=== PATIENT | female | born 1985 | race Caucasian/White ===

== ENCOUNTER 2021-01-25 19:18 | Emergency (ER) | payer OTHER, SELFPAY ==
[2021-01-25 19:50] VITALS: BP 106/77; PULSE 87; RESP 18; TEMP 36.7; O2SAT 99
--- NOTE | 2021-01-25 21:00 | ED.SKABFB ---
HPI - Skin/Abscess/Foreign Bdy General Chief complaint: Skin/Abscess/Foreign Body Stated complaint: Irritation under Rt arm, Rt Eye pain Time Seen by Provider: 01/25/21 20:20 Source: patient and RN notes reviewed Mode of arrival: ambulatory Limitations: no limitations History of Present Illness HPI narrative: Patient presents today complaining of abscesses to her right axilla x3 to 4 days and have been worsening since onset. She also reports a stye to her right lower eyelid with green drainage x2 to 3 days. She did recently shave her right axilla with a new razor. History of staph in the past with one previous abscess that she did not have to have lanced. 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 She has not tried any interventions for either complaint prior to arrival. MD complaint: abscess/boil Related Data Allergies Allergy/AdvReac Type Severity Reaction Status Date / Time hydroxyzine [From Vistaril] Allergy Hallucinati Verified 01/25/21 20:05 ng TAPE PAPER Allergy Severe RASH Uncoded 03/10/11 15:48 Review of Systems Review of Systems: CONSTITUTIONAL: Denies body aches, fever, chills, or sweats. EYES: Denies visual changes. + Right eye redness and green drainage with swelling of the lower lid ENT: Denies rhinorrhea, congestion, sore throat, or otalgia. CARDIOVASCULAR: Denies chest pain, palpitations, or edema. RESPIRATORY: Denies cough or dyspnea. GASTROINTESTINAL: Denies abdominal pain, nausea, vomiting, or diarrhea. GENITOURINARY: Denies dysuria or hematuria. SKIN: Denies rash, itching, or wounds.+ Abscess right axilla MUSCULOSKELETAL: Denies back pain, joint pain, or myalgia. NEUROLOGIC: Denies headache, numbness, tingling, or weakness. PSYCH: Denies depression or anxiety. [facility] Family History Family History (Updated 02/08/11 @ 12:05 by DOCTOR UNKNOWN) Other Carcinoma of colon Diabetes mellitus Family history of arthritis Family history of lung cancer Family history of malignant neoplasm of esophagus Family history of malignant neoplasm of male breast Family history of mental disorder Social History Social History (Updated 01/28/21 @ 08:06 by Roma Emery, CARPET OR RUG LAYER HELPER, ) Smoking status: Current every day smoker Tobacco type: cigarettes Alcohol intake: current Substance use: former Substance use type: crack/cocaine, heroin and amphetamines Living arrangements: with family Exam Narrative: GENERAL: Well-appearing, well-nourished, and in no acute distress. HEAD: Normocephalic, atraumatic. EYES: EOMI. PERRL. 1-2mm green pustular external stye to the right lower eyelid. Draining green purulent discharge. Conjunctiva mildly erythematous. Left eye normal. ENT: Mucous membranes pink and moist. NECK: Normal AROM. CHEST: No respiratory distress. EXTREMITIES: Normal range of motion. No edema. SKIN: Warm, dry, no rash. Capillary refill normal. Normal skin turgor. 2 2x2cm erythematous fluctuant lesions to the right axilla. Tender to palpation. NEURO: No focal deficits. Alert and oriented x3. Gait steady. PSYCH: Normal affect. No signs of depression or anxiety. Course Vital Signs Vital signs: Vital Signs Temperature 98.1 F 01/25/21 19:50 Pulse Rate 87 01/25/21 19:50 Respiratory Rate 18 01/25/21 19:50 Blood Pressure 106/77 01/25/21 19:50 Pulse Oximetry 99 01/25/21 19:50 Temperature 98.1 F 01/25/21 19:50 Pulse Rate 87 01/25/21 19:50 Respiratory Rate 18 01/25/21 19:50 Blood Pressure 106/77 01/25/21 19:50 Pulse Oximetry 99 01/25/21 19:50 Reviewed Procedures Abscess I/D right axilla: Date of Incision: 01/25/21 Time of Incision: 20:45 Side (if applicable): right Local Anesthetic: lidocaine 1% and with epi Amount of anesthesia used (mL): 2 Technique: needle aspiration and incised with #11 blade Amount of fluid expressed (mL): 2 Irrigation: Yes Packing used?: no
== END 2021-01-25 21:08 | disposition home or self-care (01) ==
PROVIDERS: Emergency Provider Nurse Practitioner
DX: L02.411 Cutaneous abscess of right axilla (principal); H00.013 Hordeolum externum right eye, unspecified eyelid; F17.200 Nicotine dependence, unspecified, uncomplicated
CPT/HCPCS: 10060; 87070; 87075; 87147; 87186; 87205; 99213; G0463

== ENCOUNTER 2023-10-13 11:33 | Emergency (ER) | payer BC, SELFPAY ==
--- NOTE | ~2023-10-13 | XR_ITS ---
EXAMINATION: XR elbow RT 2V DATE: 10/13/2023 16:44 INDICATION: Foreign body. TECHNIQUE: 2 views of right elbow were obtained. COMPARISON: Radiographs 10/09/2006 FINDINGS: Bone alignment is normal. No fracture. Joint spaces are normal. No elbow joint effusion. Th ere is a 7 mm linear radiopaque foreign body in the antecubital fossa. IMPRESSION: 1. 7 mm linear radiopaque foreign body in the antecubital fossa. Reviewed, dictated and finalized at location E.
--- NOTE | ~2023-10-13 | CT_ITS ---
EXAMINATION: CT soft tissue neck wo con DATE: 10/13/2023 16:43 INDICATION: Neck pain and swelling. TECHNIQUE: Computed tomography (CT) of the neck was performed without intravenous contrast. Automated exposure control and iterative reconstruction technique were employed. The dose-length product was 5 40.70 mGy-cm. COMPARISON: None FINDINGS: There are no pathologically enlarged lymph nodes. There is subcutaneous fat stranding at th e chin, consistent with inflammation. No abscess. There is kyphosis of cervical spine. There is mild mucosal thickening in the paranasal sinuses. The mastoid air cells are normal. IMPRESSION: 1. Subcutaneous fat stranding at the chin, consistent with inflammation. No abscess. Reviewed, dictated and finalized at location E. IMPRESSION: 1. Subcutaneous fat stranding at the chin, consistent with inflammation. No abs cess.
[2023-10-13 11:48] VITALS: BP 135/82; PULSE 97; RESP 16; TEMP 36.8; O2SAT 98
[2023-10-13 13:27] LABS: Appearance Urine Cloudy (Clear); Bacteria Urine 4+ /hpf; Bilirubin Urine Negative (Negative); Blood Urine Negative (Negative); Color Urine Dark Yellow (Yellow); Glucose Urine UA Negative (Negative); Ketones Urine Trace mg/dL (Negative); Leukocyte Esterase Ur Trace LEU/UL (Negative); Nitrate Urine Negative (Negative); Non Pathogenic Casts 0-2; Protein Urine Trace mg/dL (Negative); RBC Urine 0-2 /hpf (0-2); Specific Grav Ur 1.027 (1.001-1.035); Squamous Epithelial Cell Urine Many /hpf (Few)
[2023-10-13 13:34] LABS: Barbiturate Screen Urine Negative (Negative); Benzodiazepines Screen Urine Negative (Negative); Cannabinoid Screen Urine Positive (Negative); Cocaine Screen Urine Positive (Negative); Methadone Screen Urine Negative (Negative); Opiate Screen Urine Negative (Negative); Phencyclidine Screen Urine Negative (Negative)
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
[2023-10-13 13:51] LABS: Add Urine Microscopic? YES
[2023-10-13 13:52] LABS: Amphetamine Screen Urine Positive (Negative)
[2023-10-13 13:55] LABS: SARS-CoV-2 RNA PCR Negative (Negative)
[2023-10-13 14:04] LABS: Basophils Percent Auto 0.6 % (0.2-1.2); Eosinophils Absolute Auto 0.1 K/mm3 (0-0.3); Eosinophils Percent Auto 1.9 % (0-4.4); Hematocrit 42.5 % (37.0-47.0); Hemoglobin 13.6 g/dL (12.0-15.0); Immature Granulocyte Absolute 0.02 K/mm3 (0.00-0.031); Immature Granulocyte Percent A 0.3 % (0-0.5); Lymphocytes Absolute Auto 1.56 K/mm3 (0.9-3.2); Lymphocytes Percent Auto 23.3 % (18.3-44.2); Mean Corpuscular Hemoglobin 30.8 pg (26-34); Mean Corpuscular Volume 96.4 fl (80-100); Mean Platelet Volume 10.6 fl (7.4-10.4); Monocytes Absolute Auto 0.7 K/mm3 (0.1-0.6); Monocytes Percent Auto 10.5 % (2.6-8.5); Neutrophils Absolute Auto 4.2 K/mm3 (1.3-6.7); Neutrophils Percent Auto 63.4 % (45.5-73.1); Platelet Count Result 247 k/mm3 (150-375); Red Blood Count 4.41 M/mm3 (4.2-5.4); Red Cell Distribution Width 13.6 % (11.5-14.5); White Blood Count 6.7 K/mm3 (4.5-10.0)
[2023-10-13 14:18] LABS: Alanine Aminotransferase 12 U/L (6-35); Albumin Level 3.8 g/dL (3.5-5.1); Alkaline Phosphatase 86 U/L (38-126); Anion Gap 7 mmol/L (4-12); Aspartate Amino Transferase 20 U/L (14-36); Bilirubin,Total 0.5 mg/dL (0.2-1.3); Blood Urea Nitrogen 5 mg/dL (7-17); Calcium 8.5 mg/dL (8.4-10.2); Carbon Dioxide 21 mmol/L (22-30); Chloride 109 mmol/L (98-107); Estimated CRCL calculation 121 ml/min; Estimated Glomerular Filt Rate > 60; Glucose 88 mg/dL (65-110); Potassium 3.6 mmol/L (3.4-5.0); Sodium 137 mmol/L (137-145)
[2023-10-13 14:20] LABS: Ethanol < 10 mg/dL (<10)
[2023-10-13 14:52] LABS: Thyroid Stimulating Hormone Reflex 0.713 uIU/mL (0.465-4.68)
[2023-10-13 14:57] LABS: Pregnancy On Board Control Positive; Urine Pregnancy Test Negative
[2023-10-13] MEDS: CEPHALEXIN 500 MG CAPSULE PO (15:00)
[2023-10-13 15:11] LABS: SPREG INTERNAL CONTROL Positive; Serum Qual hCG Negative
[2023-10-13 15:41] LABS: Folic Acid 14.6 ng/mL (2.76->20)
[2023-10-13] MEDS: HYDROcodone/acetaminophen (*CRX) 5-325 MG TABLET 1 TAB PO (17:02)
[2023-10-13] MEDS: LORazepam (*CRX) 0.5 MG TABLET PO (17:59)
[2023-10-13] MEDS: NICOTINE (*PBKC) 21 MG PATCH 1 PATCH TRANSDERM (20:16)
[2023-10-13 20:50] VITALS: BP 142/80; PULSE 87; RESP 15; O2SAT 98
== END 2023-10-13 21:00 | disposition home or self-care (01) ==
PROVIDERS: Emergency Medicine; Emergency Provider Student in an Organized Health Care Education/Training Program; PCP Nurse Practitioner
DX: N39.0 Urinary tract infection, site not specified (principal); F15.10 Other stimulant abuse, uncomplicated; F14.10 Cocaine abuse, uncomplicated; F12.10 Cannabis abuse, uncomplicated; R45.851 Suicidal ideations; L98.9 Disorder of the skin and subcutaneous tissue, unspecified; S50.351A Superficial foreign body of right elbow, initial encounter; Z20.822 Contact with and (suspected) exposure to COVID-19; W45.8XXA Other foreign body or object entering through skin, initial encounter; F17.210 Nicotine dependence, cigarettes, uncomplicated
CPT/HCPCS: 36415; 70490; 73070; 80053; 80307; 81001; 81025; 82607; 82746; 84443; 84703; 85025; 87086; 87088; 87635; 99284; A9270

== ENCOUNTER 2024-04-20 13:01 | Emergency (ER) | payer BC, SELFPAY ==
--- NOTE | ~2024-04-20 | XR_ITS ---
XR shoulder RT min 2V DATE: 04/20/2024 15:46 INDICATION: Injury 2 weeks ago. Pain. TECHNIQUE: 4 views COMPARISON: None FINDINGS: No recent fracture or dislocation. No periosteal reaction or bone destruction. Normal align ment at the acromioclavicular and glenohumeral joints. No abnormal right shoulder soft tissue calcifi cation. IMPRESSION: Negative Reviewed, dictated and finalized at location A. 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
--- NOTE | ~2024-04-20 | XR_ITS ---
XR lumbar spine 2-3V DATE: 04/20/2024 15:46 INDICATION: Fall. Lower back pain. TECHNIQUE: AP, lateral, coned lateral lumbosacral views COMPARISON: None FINDINGS: There is mild thoracolumbar dextroscoliosis. Included lower thoracic and lumbar pedicles are intact. No fracture or bone destruction or spondyloli sthesis of the lumbar spine. There is mild to moderate degenerative disc disease primarily at L1-2, L2-3 and L3-4. Minimal degener ative disc disease at L4-5. L5-S1 disc space is well preserved. The sacroiliac joints are intact. Surgical clips, right upper quadrant, consistent with cholecystectomy. There is a prominent amount of fecal material within the colon. IMPRESSION: Bilateral mild to moderate degenerative disc disease Mild thoracolumbar dextroscoliosis No fracture or bone destruction or spondylolisthesis Reviewed, dictated and finalized at location A. BRAKE WORKER
--- NOTE | ~2024-04-20 | CT_ITS ---
EXAMINATION: CT soft tissue neck wo con DATE: 04/20/2024 15:50 INDICATION: Swelling anterior left neck TECHNIQUE: Computed tomography (CT) of the neck was performed with 75 mL Omnipaque-350 intravenous co ntrast. Automated exposure control and iterative reconstruction technique were employed. Exam dose: 532.75 mGy-cm total exam DLP. COMPARISON: None FINDINGS: No cervical mass lesion or adenopathy. Normal parotid and submandibular glands. The thyroid gland appears unremarkable. No superior mediastinal mass lesion or lymph node enlargement. The included upper lungs are clear. Included skeletal structures are unremarkable IMPRESSION: No significant abnormality Reviewed, dictated and finalized at Location A. Reviewed, dictated and finalized at location A. T FURNACE KEEPER IMPRESSION: No significant abnormality
[2024-04-20 13:02] VITALS: BP 123/72; PULSE 109; RESP 16; TEMP 37.1; O2SAT 98
--- NOTE | 2024-04-20 15:45 | ED_ITS ---
HPI - Back Pain/Injury General Chief Complaint: Back Pain/Injury Stated Complaint: low back/shoulder pain, sciatica, nodule in throat Time Seen by Provider: 04/20/24 15:02 Source: patient and old records reviewed Mode of arrival: ambulatory Limitations: no limitations History of Present Illness HPI Narrative: Patient is a 39-year-old female who presents the ED with multiple complaints. Patient reports having right shoulder pain for the past 2 weeks after injuring herself while playing badminton. She states she was told she may have injured a rotator cuff muscle. She then tripped and fell on Sunday and tried to catch herself with her right arm, re-injuring her right shoulder. Complains of pain to her right shoulder since then. Also reports having pain throughout her lower back since the fall. Hx sciatica. Has been taking Tylenol and ibuprofen without much improvement. Denies numbness, saddle anesthesia, bowel or bladder incontinence, weakness. Patient does also report having swelling throughout her anterior neck, worse throughout the left side. States this has been ongoing for the past 2 years, but has been worsening over the last several days. Denies difficulty breathing or swallowing. Patient is currently residing at [place] for mental health issues. Hx of cocaine, methamphetamine, heroin use in the past. Currently on suboxone. Related Data Allergies Allergy/AdvReac Type Severity Reaction Status Date / Time hydroxyzine [From Vistaril] Allergy Hallucinati Verified 04/20/24 13:06 ng TAPE PAPER Allergy Severe RASH Uncoded 04/20/24 13:06 Review of Systems Review of Systems: All systems reviewed & are unremarkable except as noted in HPI. All systems reviewed & are unremarkable except as noted in HPI and below PMFSH Past Medical History Medical History Mental health problem Right hand dominant Family History Family History Other Carcinoma of colon Diabetes mellitus Family history of arthritis Family history of lung cancer Family history of malignant neoplasm of esophagus Family history of malignant neoplasm of male breast Family history of mental disorder Social History Social History Smoking status: Current every day smoker Tobacco type: cigarettes Alcohol intake: current Substance use: former Substance use type: marijuana, crack/cocaine and methamphetamine Last use: Last heroin use approx 2013 Living arrangements: with family Exam Narrative: GENERAL: Well appearing, well-nourished, non-toxic, in no acute distress. HEAD: Normocephalic, atraumatic. NECK: Neck is supple. No cervical midline spinal tenderness. Minimal appreciable swelling to left lateral anterior neck. No significant tenderness. RESPIRATORY: Airway patent, respirations nonlabored. Clear to auscultation bilaterally, no rales, rhonchi, wheezing. CARDIOVASCULAR: Regular rate and rhythm without murmurs, rubs, or gallops. MUSCULOSKELETAL: Moves all extremities. No gross deformities. No significant lumbar midline spinal tenderness. Mild tenderness to palpation over right SI region, reproducing pain. Tenderness to palpation over right anterior shoulder, with mild limited range of motion of right shoulder flexion in abduction due to pain. 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 Radial pulses are strong and easily palpable. SKIN: Warm, dry, normal color. NEURO: A&O X3. Speech clear. Cranial nerves II-XII grossly intact. Steady gait. No ataxic movements. PSYCHIATRIC: Intermittently tearful, labile mood. Normal interaction. Course Vital Signs Vital signs: Vital Signs Temperature 98.7 F 04/20/24 13:02 Pulse Rate 109 H 04/20/24 13:02 Respiratory Rate 16 04/20/24 13:02 Blood Pressure 123/72 04/20/24 13:02 Pulse Oximetry 98 04/20/24 13:02 Oxygen Delivery Room Air 04/20/24 13:02 Temperature 97.8 F 04/20/24 16:04 Pulse Rate 109 H 04/20/24 16:04 Respiratory Rate 16 04/20/24 16:04 Blood Pressure 124/74 04/20/24 16:04 Pulse Oximetry 98 04/20/24 16:04 Oxygen Delivery Room Air 04/20/24 13:02 MDM - Back Pain/Injury MDM Narrative Medical decision making narrative: Patient presented to ED with multiple complaints, right shoulder pain and lower back pain after a recent fall. Also reporting swelling in her neck. Neurovascularly intact. No red flag symptoms. No evidence of cord compression or cauda equina. Back pain and shoulder pain seems musculoskeletal in nature. There is no significant swelling appreciated throughout neck however CT soft tissue neck was obtained and negative. No masses or abnormal lymphadenopathy, no abnormalities noted of thyroid. Updated patient on this. X-ray of lumbar spine showing DDD, which patient is aware of. No acute findings. X-ray of right shoulder negative. Patient was updated on imaging findings. Given Toradol, Tylenol, Flexeril in the ED with some improvement. Feel she is safe for discharge. She will be returning to [facility] to continue her mental health care. Will prescribe short course of Flexeril for home use. Will also refer to neurosurgery and Orthopedics for further evaluation if needed. Given arm sling in the ED. Patient given return precautions. She agrees with plan. Discharged in stable condition. Medical Records Attestation: I reviewed the patient's medical records. Imaging Data Attestation: I personally reviewed and interpreted this imaging study as follows: Radiologist's impression: ITS Impressions Soft Tissue Neck CT 04/20/24 15:58 IMPRESSION: No significant abnormality Shoulder X-Ray 04/20/24 16:04 IMPRESSION: Negative Lumbar Spine X-Ray 04/20/24 16:08 IMPRESSION: Bilateral mild to moderate degenerative disc disease Mild thoracolumbar dextroscoliosis No fracture or bone destruction or spondylolisthesis Discharge Plan Discharge Clinical Impression: Strain of lumbar region Qualifiers: Encounter type: initial encounter Qualified Code(s): S39.012A - Strain of muscle, fascia and tendon of lower back, initial encounter Strain of right shoulder Qualifiers: Encounter type: initial encounter Qualified Code(s): S46.911A - Strain of unspecified muscle, fascia and tendon at shoulder and upper arm level, right arm, initial encounter Patient Disposition: Home, Self-Care Condition: Stable Instructions: Antibiotic Form, Rotator Cuff Injury (ED), Acute Low Back Pain (ED), Shoulder Sprain (ED), Lower Back Exercises (ED) Additional Instructions: Your work up here was reassuring. You likely strained your back and shoulder. Utilize sling as needed. Continue Tylenol and ibuprofen as needed for pain. Recommend ice to areas of pain. Take muscle relaxers as needed and prescribed. Recommend taking these at night as they may cause sedation. Do not drive, operate heavy machinery, drink alcohol while on muscle relaxers as this may cause further sedation. You may follow-up with orthopedics or neurosurgery for further evaluation. Return to the ED if you experience worsening or severe pain, recurrent injury, numbness, or any other symptoms of concern. Prescriptions: New cyclobenzaprine 5 mg tablet 5 mg PO TID PRN (Reason: muscle spasm) Qty: 7 0RF No Action sulfamethoxazole-trimethoprim [Bactrim DS] 800-160 mg tablet 1 tablet PO Q12H 10 Days Qty: 20 0RF polymyxin B sulf-trimethoprim [Polytrim] 10,000 unit- 1 mg/mL drops 1 drp RIGHT EYE Q3H 7 Days Qty: 10 0RF Rx Instructions: while awake; do not exceed 6 doses in 24 hours cephalexin 500 mg capsule 500 mg PO Q8H 5 Days Qty: 15 0RF cephalexin 500 mg capsule 500 mg PO Q8H 5 Days Qty: 15 0RF sulfamethoxazole-trimethoprim [Bactrim DS] 800-160 mg tablet 1 tablet PO Q12H 5 Days Qty: 10 0RF Follow-up/Referrals: Blake Banda MD [Physician] - (ORTHOPEDICS) Azam Steen MD [Physician] - (NEUROSURGERY) Santi,Nilesh Zafar APRN [Primary Care Provider] - Time of Disposition: 16:55
[2024-04-20] MEDS: KETOROLAC (*BKC) 60 MG/2 ML VIAL IM (15:59)
[2024-04-20] MEDS: CYCLOBENZAPRINE HCL 5 MG TABLET PO (16:00)
[2024-04-20] MEDS: ACETAMINOPHEN 500 MG TABLET 1000 MG PO (16:00)
[2024-04-20 16:04] VITALS: BP 124/74; PULSE 109; RESP 16; TEMP 36.6; O2SAT 98
[2024-04-20] MEDS: ONDANSETRON HCL ODT 4 MG TABLET PO (16:43)
== END 2024-04-20 17:04 | disposition home or self-care (01) ==
PROVIDERS: Emergency Provider Physician Assistant; PCP Nurse Practitioner
DX: S39.012A Strain of muscle, fascia and tendon of lower back, initial encounter (principal); S46.911A Strain of unspecified muscle, fascia and tendon at shoulder and upper arm level, right arm, initial encounter; F17.210 Nicotine dependence, cigarettes, uncomplicated; W01.0XXA Fall on same level from slipping, tripping and stumbling without subsequent striking against object, initial encounter
CPT/HCPCS: 70490; 72100; 73030; 96372; 99284; A4565; A9270; J1885

== ENCOUNTER 2024-11-24 04:47 | Emergency (ER) | payer BC, SELFPAY ==
--- NOTE | ~2024-11-24 | XR_ITS ---
Portable chest x-ray Comparison: 04/10/2009 Clinical History: Shortness of breath Findings: Lungs are clear, without focal consolidation or pleural effusion. Cardiomediastinal silho uette is stable. Bones and soft tissues are unremarkable. Impression: Normal chest. Reviewed, dictated and finalized at location . Impression: Normal chest.
--- NOTE | 2024-11-24 04:55 | ECG_ITS ---
Test Date: 2024-11-24 05:20:21 Measurements Intervals [place] Rate: 61 P: 65 SC: 128 QRS: 51 QRSD: 95 T: 37 QT: 404 QTc: 408 Interpretive Statements SINUS RHYTHM NORMAL ELECTROCARDIOGRAM No previous ECG available for comparison Electronically Signed On 11-25-2024 09:46:08 CDT by Dickson Mendes M.D.
[2024-11-24 05:11] VITALS: BP 114/85; PULSE 112; RESP 26; TEMP 36.8; O2SAT 100
[2024-11-24] MEDS: SODIUM CHLORIDE 0.9% IV 1,000 ML 999 ML IV CONT (05:14)
[2024-11-24] MEDS: LORazepam INJ (*CRX) 2 MG/ML VIAL 1 MG IV PUSH (05:14)
[2024-11-24 05:25] LABS: Hematocrit 44.6 % (37.0-47.0); Hemoglobin 14.4 g/dL (12.0-15.0); Immature Granulocyte Percent A 0.3 % (0-0.5); Lymphocytes Absolute Auto 1.60 K/mm3 (0.9-3.2); Mean Corpuscular HGB Conc 32.3 g/dl (32-36); Mean Corpuscular Hemoglobin 28.0 pg (26-34); Mean Corpuscular Volume 86.6 fl (80-100); Nucleated Red Blood Cells Absolute Auto 0.000 K/mm3 (0.0-0.012); Nucleated Red Blood Cells Perc 0.0 % (0.0-0.2); Platelet Count Result 382 k/mm3 (150-375); Red Blood Count 5.15 M/mm3 (4.2-5.4); White Blood Count 8.6 K/mm3 (4.5-10.0)
[2024-11-24 05:26] LABS: BEDSIDEPREGUCG Negative (Negative)
--- OUTSIDE RECORDS SUMMARY | 2024-11-24 05:31 | XMS_ITS | Clinical Summary ---
Author Organization [facility] Address [address] [place] [address] Care Team Providers Care Family Worker Name Role Phone Ritchie Chen Primary Care Provider [phone] Allergies Active Allergy Reactions Criticality Noted Date Comments Tape Rash Low 11/03/2017 Hydroxyzine Unknown 11/03/2017 Medications acetaminophen 500 MG tablet Take 500-1,000 mg by mouth every 6 (six) hours. Active lurasidone 40 MG Tab tablet Take by mouth daily with breakfast. Active ranitidine 150 MG tablet Take 150 mg by mouth 2 (two) times daily. Active cyclobenzaprine 10 MG tablet Take 10 mg by mouth 3 (three) times daily as needed for Muscle Spasms. Active potassium chloride (KLOR-CON) 20 MEQ packet Take 1 packet by mouth 2 (two) times daily. 20 tablet 08/29/2018 Active hydrocodone-cliff taminophen 5-325 MG tablet Take 1 tablet by mouth every 4 (four) hours as needed. 20 tablet 09/03/2018 Active senna-docusate 8.6-50 MG tablet Take 1 tablet by mouth 2 (two) times daily. 60 tablet 09/03/2018 Active traZODone 150 MG tablet Take 150 mg by mouth nightly. 08/26/2020 Active clonazePAM 0.5 MG tablet Take 0.5 mg by mouth 2 (two) times daily as needed. FOR ANXIETY 08/25/2020 Active tiZANidine 2 MG tablet Take 2 mg by mouth daily as needed. 08/27/2020 Active LATUDA 20 MG tablet Take 20 mg by mouth daily. 40 mg at night and 20 mg in the morning 08/07/2020 Active ibuprofen 800 MG tablet Take 1 tablet (800 mg total) by mouth every 8 (eight) hours as needed for Pain. 20 tablet 09/07/2020 Active Active Problems Problem Noted Date Diagnosed Date Bipolar disorder in partial remission ([facility]) 01/17/2024 Bulge of lumbar disc without myelopathy 01/17/20 Fibromyalgia 01/17/2024 Cocaine use with cocaine-induced disorder ([facility]) 01/17/2024 Alcohol withdrawal ([facility]) 10/15/2023 Stimulant withdrawal ([facility]) Anxiety 10/15/2023 MRSA infection 10/15/2023 Schizoaffective disorder ([facility]) 10/14 Asthma ([facility]) 10/22/2022 Chronic active hepatitis C ([facility]) 03/2023 Hypoglycemia 10/22/2022 Opioid dependence ([facility]) 10/22/2022 Osteoarthrosis 10/22/2022 Scoliosis deformity of spine 10/22/2022 Snoring 10/22/2022 Vitamin D3 deficiency 10/22/2022 Depressive disorder 10/16/2022 Generalized anxiety disorder 10/16/2022 Nausea 10/16/2022 Syncope 10/16/2022 Thrombocytopenic disorder 10/16/2022 Opioid withdrawal ([facility]) 11/22/2018 Oligohydramnios ([facility]) 08/31/2018 Abdominal pain affecting ([facility]) History of marijuana use 08/10/2015 History of heroin abuse 08/02/2015 HSV-1 (herpes simplex virus 1) infection 015 Overview (01/17/2024): HSV 2 negative Chronic low back pain with sciatica 03/23/2015 Overview (01/17/2024): belt prescribed prior to coming to [facility] Supervision of high risk , antepartum ( [facility]) 03/23/2015 Overview (01/17/2024): Dating: PNL: A+/I/-/-, HIV neg Pap: GC/CT: neg, Trich neg Urine cx: neg UDS: +MJ H/H/P: 14.3/43.1/222 HgbE: Genetics: Anatomy US: Flu shot: Tdap: LFT's: (ALT 64/AST 37) 02/04/18 HCV: positive GCT: GBS: Viral hepatitis C 10/10/2013 Overview (01/17/2024): Quant: 449,000 Genotype: LFT: 64/37 02/04/18 Immunizations Immunization Administration Dates Next Due MMR (MMRII) 09/02/2018 Social History Tobacco Use Types Packs/Day Years Used Date Smoking Tobacco: Every Day Cigarettes Smokeless Tobacco: Never Tobacco Cessation:Ready to Q uit: No; Counseling Given: Yes Alcohol Use Standard Drinks/Week Comments Yes 0 (1 standard drink = 0.6 oz pure alcohol) occational, states not when Comments No Sex and Gender Information Value Date Recorded Sex Assigned at Not on file Legal Sex Female 9:52 PM CDT Gender Identity Not on file Sexual Orientation Not on file Last Filed Vital Signs Vital Sign Reading Time Taken Comments Blood Pressure 134/84 01/19/2024 6:10 AM CDT Pulse 90 01/19/2024 6:10 AM CDT Temperature 37.2 C (98.9 F) 01/19/2024 4:00 AM CDT Respiratory Rate 22 01/19/2024 6:10 AM CDT Oxygen Saturation 97% 01/19/2024 6:10 AM CDT Inhaled Oxygen Concentration - - Weight 86.6 kg (191 lb) 01/19/2024 4:00 AM CDT Height 167.6 cm (5' 6) 01/19/2024 4:00 AM CDT Body Mass Index 30.83 01/19/2024 4:00 AM CDT Plan of Treatment Health Maintenance Due Date Last Done Comments Cervical Cancer Screening Pap Smear (Age 30 to 64) Every 3 Years 1985 Annual Physical 1988 DTaP, Tdap and Td Vaccines (1 - Tdap) 2004 Pneumococcal Vaccine: Pediatrics (0 to 5 Years) and At-Risk Patients (6 to 49 Years) (1 of 2 - PCV) 2004 Cervical Cancer Screening Pap with HPV Testing (Age 30 to 64) Every 5 Years 2015 Cervical Cancer Screening with HPV 2015 Hepatitis B Vaccines (2 of 3 - 19+ 3-dose series) 03/04/2018 02/04/2018 COVID-19 Vaccine ( season) 2024 Hepatitis C Completed 10/22/2022, 11/11, 07/23/2018, Additional history exists HPV Vaccines Aged Out No longer eligi ble based on patient's age to complete this topic Meningococcal B Vaccine Aged Out No l onger eligible based on patient's age to complete this topic Meningococcal Vaccine Aged Out No simeon micaela eligible based on patient's age to complete this topic RSV Immunizations Under 20 Months Aged Out No longer eligible based on patient's age to complete this topic Procedures Procedure Name Priority Date/Time Associated Diagnosis Comments HEPATITIS C ANTIBODY Routine 06/21/2018 7:33 PM COAL [employer]ARD SUPERVISOR (HHS/HCC) from Last 3 Months or Most Recently Relevant to Health Maintenance Results * (ABNORMAL) HEPATITIS C ANTIBODY (06/21/2018 7:33 PM COAL YARD SUPERVISOR) HEPATITIS C AB REACTIVE( A) NON-REACT JT 06/24/2018 12:30 PM COAL YARD SUPERVISOR [facility] Comment: PRESUMPTIVE EVIDENCE OF ANTIBODIES TO HCV. CONSIDER ORDERING HCV RNA DETECTION AND QUANTIFICATION BY RT-PCR ANALYSIS ON A NEW SPECIMEN. 06/21/2018 7:33 PM COAL YARD SUPERVISOR us Rozina Vincent MD [facility] Final Res ult [facility] [address] [place] [address], [id number] from Last 3 Months or Most Recently Relevant to Health Maintenance Additional Health Concerns Infection Onset Date Last Indicated MRSA 12/21/2016 12/21/2016 Insurance [facility] C/O PROVIDER SERVICES [place] [id number] Advance Directives * Full Code (Latest Code Status on File) Date Activated Date Inactivated Comments 08/31/2018 11:48 AM 09/03/2018 4:40 PM Care Teams Family Worker Relationship Specialty Start Date End Date Ritchie Chen DO [address] [place] [id number] PCP - General FAMILY PRACTICE 01/17/24
--- OUTSIDE RECORDS SUMMARY | 2024-11-24 05:31 | XMS_ITS ---
Author Organization [facility] Address [address] [place] [address] Care Team Providers Care Laster Hand Name Role Phone Shoshana Gallegos Primary Care Provider [phone] Luiz Calhoun [phone] REASON FOR VISIT MAR f/u. See notes from telephone AWM telephone encounter Social History Sex Assigned At : Social History Observation Description Sex Assigned At Female Encounters Encounter Location Date Provider Diagnosis [address] [place] [address] 11/03/2024 Luiz Calhoun Plan Of Treatment No Information Progress Notes * Adwoa ZARATEDOB:1985 (39 yo F)Acc No.[id number]:11/03/2024 UNLOCKED PROGRESS NOTE Patient: Adwoa ARRIAGA Provider: Gerard Calhoun :1985 A ge:39 Y S ex:Female Date:11/03/2024 Address:[address] [place], [place] [id number] Pcp:Shoshana Gallegos Subjective: * Chief Complaints: * 1 . MAR f/u. See notes from telephone AWM telephone encounter. * Medical History: Objective: * Vitals: Assessment: Plan: * Treatment: * Care Plan Details* * Electronic signature of Venus Calhoun , [id number] on 11/24/2024 at 05:30 AM CDT Sign off status: Pending * Provider: Gerard Calhoun Date: 0 11/03/2024 Generated for Jake garcia/Slim/Alberto on: 0 11/24/2024 05:30 AM CDT
--- OUTSIDE RECORDS SUMMARY | 2024-11-24 05:31 | XMS_ITS ---
Author Organization [facility] Address [address] [place] [address] Care Team Providers Care Marble Rubber Name Role Phone Shoshana Gallegos Primary Care Provider [phone] Luiz Calhoun [phone] REASON FOR VISIT transfer from [facility] Social History Sex Assigned At : Social History Observation Description Sex Assigned At Female Encounters Encounter Location Date Provider Diagnosis [address] [phone] 11/04/2024 Luiz Calhoun Plan Of Treatment No Information Progress Notes * Adwoa ZARATEDOB:1985 (39 yo F)Acc No.[id number]:11/04/2024 UNLOCKED PROGRESS NOTE Progress Notes Patient: S Adwoa DE OLIVEIRA Provider: Gerard Calhoun :1985 A ge:39 Y S ex:Female Date:11/04/2024 Address:[address] [place], [place] [id number] Pcp:Shoshana Gallegos Subjective: * Chief Complaints: * 1 . Transfer from [facility]. * Medical History: Objective: * Vitals: Assessment: Plan: * Treatment: * * Electronic signature of Venus Calhoun , [id number] on 11/24/2024 at 05:31 AM CDT Sign off status: Pending * Provider: Gerard Calhoun Date: 0 11/04/2024 Generated for Jake garcia/Slim/Alberto on: 0 11/24/2024 05:[address]
--- OUTSIDE RECORDS SUMMARY | 2024-11-24 05:31 | XMS_ITS | Patient Health Record ---
Author Organization [facility] Address [address] [place] [address] Care Team Providers Care Synthetic Department Supervisor Name Role Phone Shoshana Gallegos Primary Care Provider [phone] Nahomy Hall Unavailable [phone] Luiz Calhoun Unavailable [phone] Nilesh Hancock Unavailable [phone] Jayne Mims Unavailable [phone] Sade Miller Unavailable [phone] Fany Goel Unavailable [phone] Cyn Cardona Unavailable [phone] Gudelia Celaya Unavailable [phone] Ann Gotti Unavailable [phone] Rozina Maddox Unavailable [phone] Shannon Wiggins Unavailable [phone] Celestina Richey Unavailable [phone] Allergies Allergen (clinical drug ingredient) Drug/Non Drug Allergy documented on EMR Reaction Allergy Type Onset Date Status Adhesive burn Allergy Active hydroxyzine Hydroxyzine Hallucinations Drug Allergy Active Results Component Value Reference Range Notes Mammogram Breast - Bilateral Screening with ABUS, diagnostic mammogram/ultrasound, and/or biopsy as clinically indicated Reviewed date:07/21/2024 08:29:52 AM Interpretation:Normal Performing Lab: Notes/Report: Normal Vitamin B12 and Folate Reviewed date:04/23/2024 08:46:27 AM Interpretation:Normal Performing Lab:[facility], [address] [place] [address], Phone - [phone], Director - [facility] Notes/Report: Vitamin B12 085 426-1841 pg/mL Folate (Folic Acid), Serum >20.0 >3.0 ng/mL A serum folate concentration of less than 3.1 ng/mL is considered to represent clinical deficiency. TSH+Free T4* Reviewed date:04/23/2024 08:46:27 AM Interpretation:Normal Performing Lab:[address], Phone - [phone], Director - [facility] Notes/Report: TSH 1.390 0.450-4.500 uIU/mL T4,Free(Direct) 1.04 0.82-1.77 ng/dL HIV Screen *HIV 1, 2 Ab, p24 Ag ([id number]) Reviewed date:05/20/2024 01:01:27 PM Interpretation:Negative Performing Lab:[address], Phone - [phone], Director - [facility] Notes/Report: HIV Ab/p24 Ag Screen Non Reactive Non Reactive HIV-1/HIV-2 antibodies and HIV-1 p24 antigen were NOT detected. There is no laboratory evidence of HIV infection. HIV Negative Hemoglobin A1c* Reviewed date:05/20/2024 01:01:27 PM Interpretation:Normal Performing Lab:[facility] [address] [place] [address], Phone - [phone], Director - [facility] Notes/Report: Hemoglobin A1c 5.6 4.8-5.6 % . Prediabetes: 5.7 - 6.4 Diabetes: >6.4 Glycemic control for adults with diabetes: <7.0 CBC With Differential/Platel et* Reviewed date:05/20/2024 04:35:21 PM Interpretation: Performing Lab:[facility] [address] [place] [address], Phone - [phone], Director - [facility] Notes/Report: WBC 3.7 3.4-10.8 x10E3/uL RBC 4.38 3.77-5.28 x10E6/uL Hemoglobin 13.2 11.1-15.9 g/dL Hematocrit 40.9 34.0-46.6 % MCV 93 79-97 fL MCH 30.1 26.6-33.0 pg MCHC 32.3 31.5-35.7 g/dL RDW 11.4 11.7-15.4 % Platelets 148 150-450 x10E3/uL Neutrophils 33 Not Estab. % Lymphs 53 Not Estab. % Monocytes 9 Not Estab. % Eos 4 Not Estab. % Basos 1 Not Estab. % Neutrophils (Absolute) 1.2 1.4-7.0 x10E3/uL Lymphs (Absolute) 2.0 0.7-3.1 x10E3/uL Monocytes(Absolute) 0.3 0.1-0.9 x10E3/uL Eos (Absolute) 0.1 0.0-0.4 x10E3/uL Baso (Absolute) 0.0 0.0-0.2 x10E3/uL Immature Granulocytes 0 Not Estab. % Immature Grans (Abs) 0.0 0.0-0.1 x10E3/uL Hepatitis B Surface Antigen (HBsAg Screen) Reviewed date:05/20/2024 01:01:27 PM Interpretation:Negative Performing Lab:[facility], [address] [place] [address], Phone - [phone], Director - [facility] Notes/Report: HBsAg Screen Negative Negative Hepatitis C Virus Antibody w /Rflx to Quantitative Real-time PCR ([id number]) Reviewed date:05/20/2024 01:01:27 PM Interpretation:Abnormal Performing Lab:[facility], [address] [place] [address], Phone - [phone], Director - [facility] Notes/Report: HCV Ab Reactive Non Reactive Hepatitis C Quantitation HCV Not Detected Test Information: The quanti tative range of this assay is 15 IU/mL to 100 million IU/mL. Interpretation: Positive HCV antibody screen without the presence of HCV RNA is consistent with a resolved past infection or a false positive HCV antibody. Consider repeat testing after one month. Lipid Panel* Reviewed date:05/20/2024 01:01:27 PM Interpretation:High Performing Lab:[facility], [address] [place] [address], Phone - [phone], Director - [facility] Notes/Report: Cholesterol, Total 207 100-199 mg/dL Triglycerides 161 0-149 mg/dL HDL Cholesterol 55 >39 mg/dL VLDL Cholesterol Dash 28 5-40 mg/dL LDL Chol Calc ([facility]) 124 0-99 mg/dL CMP 14 Comprehensive Metabol ic Panel* Reviewed date:05/20/2024 01:01:27 PM Interpretation: Performing Lab:[facility], [address] [place] [address], Phone - [phone], Director - [facility] Notes/Report: Glucose 103 70-99 mg/dL BUN 14 6-20 mg/dL Creatinine 0.82 0.57-1.00 mg/dL eGFR 93 >59 mL/min/1.73 BUN/Creatinine Ratio 17 9-23 Sodium 140 134-144 mmol/L Potassium 4.5 3.5-5.2 mmol/L Chloride 108 96-106 mmol/L Carbon Dioxide, Total 21 20-29 mmol/L Calcium 8.8 8.7-10.2 mg/dL Protein, Total 6.1 6.0-8.5 g/dL Albumin 3.9 3.9-4.9 g/dL Globulin, Total 2.2 1.5-4.5 g/dL Bilirubin, Total <0.2 0.0-1.2 mg/dL Alkaline Phosphatase 56 44-121 IU/L AST (SGOT) 23 0-40 IU/L ALT (SGPT) 18 0-32 IU/L Rapid Plasma Reagin (RPR) Te st With Reflex to Quantitative RPR and Confirmatory Treponema pallidum Antibodies Reviewed date:05/20/2024 01:01:27 PM Interpretation: Performing Lab:[facility], [address] [facility], Phone - [phone], Director - [facility] Notes/Report: RPR Non Reactive Non Reactive PDF Report Reviewed date:05/20/2024 01:01:27 PM Interpretation: Performing Lab:[facility] [address] [place] [address], Phone - [phone], Director - [facility] Notes/Report: Clinical Information:[id number] PDF Report1 LCLS 12 Panel Urine Drug Screen Reviewed date:12/06/2023 10:33:23 AM Interpretation: Performing Lab: Notes/Report: THC POS MELISSA neg MOP (OPI) neg AMP neg MET neg BAR neg BZO neg MDMA neg MTD neg OXY neg PCP neg BUP POS Buprenorphine and Metabolite (Urine test) Reviewed date:12/11/2023 08:59:03 AM Interpretation: Performing Lab:[facility], [address] [facility], [place], Phone - [phone], Director - Ph[facility] Notes/Report: Clinical Information:[id number] LM Buprenorphine Positive Confirmation p erformed by Mass Spectrometry Buprenorphine Positive Buprenorphine Conf, MS, UR 165 Cutoff=10 ng/mL Norbuprenorphine Positive Norbuprenorphine Conf, MS, UR 558 Cutoff=10 ng/mL Pap IG Aptima HPV Age Gdln, +CtNgTv ([id number]) Reviewed date:04/28/2024 11:52:21 AM Interpretation: Performing Lab:[facility], [address] [facility], Phone - [phone], Director - [facility] Notes/Report: Clinical Information:[id number] Clinical Information:[id number] Age Gdln ACOG Testing 30-65 DIAGNOSIS: NEGATIVE FOR INTRAEPITHELIAL LESION OR MALIGNANCY. CELLULAR CHANGES ASSOCIATED WITH INFLAMMATION ARE PRESENT. Specimen adequacy: Satisfactory for evaluation. Endocervical and/or squamous metaplastic cells (endocervical component) are present. Clinician provided ICD10: Z0 1.419 Performed by: Calin Menon, Catalyst Operator (ASCP) . . Note: The Pap smear is a screening test designed to aid in the detection of premalignant and malignant conditions of the uterine cervix. It is not a diagnostic procedure and should not be used as the sole means of detecting cervical cancer. Both false-positive and false-negative reports do occur. . Test Methodology: This liquid based ThinPrep(R) pap test was screened with the use of an image guided system. HPV Aptima Negative Negative This nucleic acid amplification test detects fourteen high-risk HPV types (16,18,31,33,35,39,45,51 ,52,56,58,59,66,68) without differentiation. HPV Genotype Reflex Criteria not met, HPV Genotype not performed. Chlamydia, Nuc. Acid Amp Negative Negative Gonococcus, Nuc. Acid Amp Negative Negative Trich vag by ANDERS Positive Negative 12 Panel Urine Drug Screen Reviewed date:06/13/2024 11:15:32 AM Interpretation: Performing Lab: Notes/Report: THC neg MELISSA neg MOP (OPI) neg AMP POS MET neg BAR neg BZO neg MDMA neg MTD neg OXY neg PCP neg BUP POS 12 Panel Urine Drug Screen Reviewed date:08/06/2024 10:02:55 AM Interpretation: Performing Lab: Notes/Report: THC neg MELISSA neg MOP (OPI) neg AMP POS MET neg BAR neg BZO neg MDMA neg MTD neg OXY neg PCP neg BUP POS 12 Panel Urine Drug Screen Reviewed date:07/11/2024 01:49:37 PM Interpretation: Performing Lab: Notes/Report: THC neg MELISSA neg MOP (OPI) neg AMP POS MET neg BAR neg BZO neg MDMA neg MTD neg OXY neg PCP neg BUP POS NuSwab Vaginitis Plus (VG+) ([id number]) Reviewed date:04/24/2024 12:50:42 PM Interpretation:Abnormal Performing Lab:[facility], Phone - [phone], Director - [facility] Notes/Report: Test(s) 630374- Atopobium vaginae; 935760- BVAB 2; 742217- Megasphaera 1 was developed and its performance characteristics determined by [facility]. It has not been cleared or approved by the Food and Drug Administration. Test(s) 605928-Qtgftqa albicans, ANDERS; 345054-Zpoqppn glabrata, ANDERS was developed and its performance characteristics determined by [facility]. It has not been cleared or approved by the Food and Drug Administration. Atopobium vaginae High - 2 BVAB 2 High - 2 Megasphaera 1 Low - 0 Calculate total score by adding the 3 individual bacterial vaginosis (BV) marker scores together. Total score is interpreted as follows: Total score 0-1: Indicates the absence of BV. Total score 2: Indeterminate for BV. Additional clinical data should be evaluated to establish a diagnosis. Total score 3-6: Indicates the presence of BV. Chaya albicans, ANDERS Negative Negative Chaya glabrata, ANDERS Negative Negative Trich vag by ANDERS Positive Negative Chlamydia trachomatis, ANDERS Negative Negative Neisseria gonorrhoeae, ANDERS Negative Negative QuantiFERON-TB Gold Plus (18 1419) Reviewed date:04/23/2024 08:46:27 AM Interpretation:Normal Performing Lab:[facility], [address] [place] [address], Phone - [phone], Director - [facility] Notes/Report: QuantiFERON Incubation Incubation performed. QuantiFERON-TB Gold Plus Negative Negative No response to M tuberculosis antigens detected. Infection with M tuberculosis is unlikely, but high risk individuals should be considered for additional testing (ATS/IDSA/CDC Clinical Practice Guidelines, 2017). The reference range is an Antigen minus Nil result of <0.35 IU/mL. Chemiluminescence immunoassay methodology QuantiFERON Criteria QuantiFERON-TB Gold Plus is a qualitative indirect test for M tuberculosis infection (including disease) and is intended for use in conjunction with risk assessment, radiography, and other medical and diagnostic evaluations. The QuantiFERON-TB Gold Plus result is determined by subtracting the Nil value from either TB antigen (Ag) value. The Mitogen tube serves as a control for the test. QuantiFERON TB1 Ag Value 0.25 QuantiFERON TB2 Ag Value 0.15 QuantiFERON Nil Value 0.01 QuantiFERON Mitogen Value >10.00 14 Panel Urine Drug Screen Reviewed date:10/21/2024 02:37:41 PM Interpretation: Performing Lab: Notes/Report: THC neg MELISSA POS MOP (OPI) neg AMP neg MET POS BAR neg BZO neg MDMA neg MTD neg OXY neg PCP neg BUP POS TCA neg FTY neg Reason For Referral Reason LBP Diagnosis 1 Bilateral low back p ain with right-sided sciatica, unspecified chronicity (M54.41) Referral Organization [facility] Referring Provider First Name Nilesh Referring Provider Last Name Santi [facility] Referred Provider Specialty Physical The rapist General Notes Faxed to [facility], Rozina Tmo RN 07/08/2024 10:10:34 AM >Patient requesting referral be faxed to [facility] at [phone], Rozina Tom RN 07/08/2024 10:46:37 AM >Referral and records faxed to [facility]-PT Clinical Notes [facility]-Out patient Physical Therapy, Referral Priority Routine Medications Medication SIG (Take, Route, Frequency, Duration) Notes Start Date End Date Status Lurasidone HCl 60 MG 1 tablet in the evening with food Orally Once a day; Duration: 5 days Active Lurasidone HCl 40 MG 1 tablet with food in the morning Orally Once a day; Duration: 5 days Active Buprenorphine HCl-Naloxone HCl 4-1 MG 1 film under the tongue and allow to dissolve Sublingual Once a day; Duration: 3 days As needed for cravings 10/17/2024 Active Sublocade 300 MG/1.5ML 1.5 mL Subcutaneous every 28 days 08/06/2024 Active Baclofen 5 MG 1 tablet as needed Orally up to three times daily Active traZODone HCl 50 MG 1 tablet at bedtime as needed Orally Once a day; Duration: 30 days Active Loratadine 10 MG 1 tablet Orally Once a day; Duration: 30 days Active Lurasidone HCl 40 MG 1 tablet with food in the morning Orally Once a day; Duration: 30 days Active Vitamin D (Ergocalciferol) 50 MCG (2000 UT) 1 capsule Orally Once a day; Duration: 30 days Active Ibuprofen 800 MG 1 tablet with food or milk as needed Orally every 8 hrs Active Ondansetron HCl 4 MG 1 tablet Orally twice daily; Duration: 30 days As needed nausea Active Albuterol Sulfate HFA 108 (90 Base) MCG/ACT 1 puff as needed Inhalation every 4 hrs 04/30/2024 Active Omeprazole 20 MG 1 capsule Orally Once a day Not-Taking GLUCOMETER, FORMULARY ANY to test daily as needed; Duration: 360 days 06/26/2024 Active SUMAtriptan Succinate 25 MG one tablet at onset of migraine, may take 1 more two ours later if no relief Orally once daily; Duration: 9 days As needed 08/14/2024 Not-Taking Venlafaxine HCl ER 225 MG 1 tablet with food Orally Once a day Active Nicorette 2 MG as directed Mouth/Throat; Duration: 30 days As needed Not-Taking Multivitamin - 1 tablet Orally Once a day Active Nicoderm CQ 21 MG/24HR 1 patch to skin Transdermal Once a day Not-Taking Lurasidone HCl 60 MG 1 tablet in the evening with food Orally Once a day; Duration: 30 days Active Hydrocortisone 0.5 % 1 application to rash Externally once daily; Duration: 5 days on unit 05/08/2024 Not-Taking Venlafaxine HCl ER 225 MG 1 tablet with food Orally Once a day; Duration: 30 days Active Docusate Sodium 100 mg TAKE 1 CAPSULE BY MOUTH DAILY NEEDED; Duration: 30 Active Pregabalin 75 MG 1 capsule Orally 3 times a day; Duration: 7 days overdue for appt 11/19/2024 Active Fluticasone Propionate 50 MCG/ACT 1 spray in each nostril Nasally Twice a day; Duration: 30 days on unit 05/08/2024 Not-Taking metroNIDAZOLE 500 MG 1 tablet Orally Twice daily; Duration: 7 days on unit 04/24/2024 Not-Taking Vyvanse 70 MG 1 capsule in the morning Orally Once a day Active Melatonin 5 MG 1 tablet in the evening Orally Once a day As needed Not-Taking Immunizations Vaccine Route Administration Date Status Comme nts Influenza, virus vaccine, trivalent, preservative free Unknown 04/17/2024 Administered Annie ANNEL, Kaylen Molina 04/18/2024 02:05:30 PM LICENSED MENTAL HEALTH COUNSELOR >received documentation from [facility] indicating pt received flu vaccine there. Social History Tobacco Use: Social History Observation Description Date Details (start date - stop date) Former Smoker NA - NA Sex Assigned At : Social History Observation Description Sex Assigned At Female PRAPARE Question Answer Notes Date Completed/Updated: 04/22/2024 What is your current housing situation? I do not have housing (staying with others, in a hotel, in a jail, living outside on the street, on a beach, or in a park) Are you worried about losing your housing? Yes What is the highest level of school that you have finished? High school diploma or GED What is your current work situation? Oth erwise unemployed but not seeking work (ex. 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 Check all that apply Food,Utilities Has lack of transportation k ept you from medical appointments, meetings, work or from getting things needed for daily living? Yes, it has kept me from non-medical meetings, appointments, work, or getting things needed for daily living How often do you see or talk to people that you care about and feel close to? (For example: talking to friends on the phone, visiting friends or family, going to confucianist or club meetings) 3 to 5 times a week How stressed are you? Stress is when someone feels tense, nervous, anxious, or can\t sleep at night because their mind is troubled Quite a bit In the past year have you sp ent more than 2 nights in a row in a mcc, skilled nursing, penitentiary center, or juvenile correctional facility? No Are you a refugee? No What country are you from? [place] Do you feel physically and e motionally safe where you currently live? No In the past year, have you b een afraid of your partner or ex-partner? Yes PRAPARE Score: 12 Tobacco Control (Standard) Question Answer Notes Tobacco use: Former smoker Section Notes: PRESCRIPTION # FILLED WRITTEN DRUG LABEL QTY DAYS STRENGTH MME PRESCRIBER PHARMACY REFILL NO. REFILLS STATE 11/02/2023 11/02/2023 Cyclobenzaprine Hcl 90.0 30 10 MG NA Hancock Nilesh J - [id number] [place], [place] NA 0 [place] 1 [id number] 10/22/2023 10/04/2023 Buprenorphine-naloxone 36.0 12 8 MG / 2 MG NA Hancock Nilesh J - [id number] [place], [place] NA 0 [place] 1 [id number] 10/20/2023 10/04/2023 Buprenorphine-naloxone 6.0 2 8 MG / 2 MG NA Hancock Nilesh J - [id number] [place], [place] NA 0 [place] 1 [id number] 10/19/2023 10/19/2023 chlordiazePOXIDE HCL 20.0 6 10 MG PRESCRIPTION # FILLED WRITTEN DRUG LABEL QTY DAYS STRENGTH MME PRESCRIBER PHARMACY REFILL NO. REFILLS STATE 10/22/2023 10/04/2023 Buprenorphine-naloxone 36.0 12 8 MG / 2 MG NA Hancock Nilesh J - [id number] [place], [place] NA 0 [place] 1 [id number] 10/20/2023 10/04/2023 Buprenorphine-naloxone 6.0 2 8 MG / 2 MG NA Hancock Nilesh J - [id number] [place], [place] NA 0 [place] 1 [id number] 10/19/2023 10/19/2023 chlordiazePOXIDE HCL 20.0 6 10 MG PRESCRIPTION # FILLED WRITTEN DRUG LABEL QTY DAYS STRENGTH MME PRESCRIBER PHARMACY REFILL NO. REFILLS STATE 11/02/2023 11/02/2023 Cyclobenzaprine Hcl 90.0 30 10 MG NA Santi Galloway J - [id number] [place], [place] NA 0 [place] 1 [id number] 10/22/2023 10/04/2023 Buprenorphine-naloxone 36.0 12 8 MG / 2 MG NA Santi Hines - [id number] [place], [place] NA 0 [place] 1 [id number] 10/20/2023 10/04/2023 Buprenorphine-naloxone 6.0 2 8 MG / 2 MG NA Santi Hines - [id number] [place], [place] NA 0 [place] 1 [id number] 10/19/2023 10/19/2023 chlordiazePOXIDE HCL 20.0 6 10 MG Problems Problem Type SNOMED Code ICD Code Onset Dates Problem Status W/U Status Risk Notes Problem Tobacco user (027110122) Nicotine dependence, unspecified, uncomplicated (F17.200) Active confirmed Problem Borderline personality disorder (20853988) Borderline personality disorder (F60.3) Active confirmed Problem Attention deficit hyperactivity disorder, 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) Attention and concentration deficit (R41.840) Active confirmed Problem Insomnia (710527599) Insomnia (G47.00) Active confirmed Problem Posttraumatic stress disorder (34677437) PTSD (post-traumatic stress disorder) (F43.10) Active confirmed Problem Anxiety (29248187) Anxiety (F41.9) Active confirmed Problem Attention deficit hyperactivity disorder (537017940) ADHD (attention deficit hyperactivity disorder) (F90.9) Active confirmed Problem Bipolar 1 disorder (112708072) Bipolar 1 disorder (F31.9) Active confirmed Problem Vitamin D deficiency (91423125) Vitamin D deficiency (E55.9) Active confirmed Problem Migraine (11995381) Migraine (G43.909) Active confirmed Problem Generalized anxiety disorder (17655960) MORENO (generalized anxiety disorder) (F41.1) Active confirmed Problem Thyroid nodule (613916655) Thyroid nodule (E04.1) Active confirmed Problem Psychosis (49836837) Psychosis (F29) 024 Active confirmed R/O Schizoaffec tive, Substance Induced Psychosis Problem Sciatica (04037044) Sciatica (M54.30) Active confirmed Problem Neuropathy (772406698) Neuropathy (G62.9) Active confirmed Problem Overweight (362319492) Over weight (E66.3) Active confirmed Problem Obesity (523739338) Obesity (BMI 30-39.9) (E66.9) Active confirmed Problem Mild intermittent asthma (815306700) Mild intermittent asthma without complication (J45.20) Active confirmed Problem Sciatica (92377415) Bilateral low back pain with right-sided sciatica, unspecified chronicity (M54.41) Active confirmed Problem Tobacco use (598363941) Tobacco use disorder (F17.200) Active confirmed Problem Opioid use disorder (4188935412) Opioid use disorder (F11.99) Active confirmed Problem Cocaine use disorder (0005749937) Cocaine use disorder (F14.10) Active confirmed Problem Allergic rhinitis (75991009) Chronic allergic rhinitis (J30.9) Active confirmed Vital Signs Heart Rate 66 /min 10/21/2024 Temperature 98.0 degrees Fahrenheit 09/15/2024 Respiratory Rate 16 /min 10/21/2024 Blood pressure diastolic 74 mm Hg 10/21/2024 Oximetry 97 % 10/21/2024 Height 65 in 10/21/2024 Blood pressure systolic 102 mm Hg 10/21/2024 Weight 220 lb 6 oz lbs 10/21/2024 BMI 36.67 kg/m2 10/21/2024 Encounters Encounter Location Date Provider Diagnosis [facility] [address] [place] [address] 04/21/2024 Rozina Maddox [facility] [address] [facility] [place] [address] 05/13/2024 Rozina Maddox Screening for metabolic disorder Z13.228 ; Screening for hyperlipidemia Z13.220 ; Screening for deficiency anemia Z13.0 ; Screening for diabetes mellitus Z13.1 and Exposure to potential infection Z20.[address] [place] [address] 12/06/2023 Shannon Wiggins Opioid use disorder F11.99 ; Nicotine dependence, unspecified, uncomplicated F17.200 ; Obesity (BMI 30-39.9) E66.9 and Nutritional counseling Z71.[address] [place] [address] 12/06/2023 Sade Miller [address] [place] [address] 12/13/2023 Ann Bethi Anxiety F41.9 ; Bipolar disorder F31.9 ; Psychosis F29 ; Substance use disorder F19.90 ; Nicotine abuse Z72.0 and ADHD (attention deficit hyperactivity disorder) F90.9 [place] [address] [place] [address] 04/15/2024 Rozina Short Shoulder pain, right M25.511 ; Adult general medical exam Z00.00 and Sciatica M54.30 [address] [place] [address] 04/16/2024 Nilesh Hancock Opioid use disorder F11.99 ; Bilateral low back pain with right-sided sciatica, unspecified chronicity M54.41 ; Thyroid nodule E04.1 ; Vitamin B deficiency E53.9 ; Adult general medical exam Z00.00 ; Obesity (BMI 30-39.9) E66.9 ; Nutritional counseling Z71.3 and Nicotine dependence, unspecified, uncomplicated F17.[address] [address] 04/17/2024 Shoshana Rosy Anxiety F41.9 ; Bipolar disorder F31.9 ; Substance use disorder F19.90 ; ADHD (attention deficit hyperactivity disorder) F90.9 and Insomnia G47.00 [address] [place] [address] 04/22/2024 Rozina Short Well woman exam with routine gynecological exam Z01.419 and Breast lump N63.0 [address] [place] [address] 04/30/2024 Nilesh Hancock Mild intermittent asthma without complication J45.20 ; Vitamin D deficiency E55.9 ; Lump in neck R22.1 ; Acute pain of right shoulder M25.511 ; Obesity (BMI 30-39.9) E66.9 ; Nutritional counseling Z71.3 and Nicotine dependence, unspecified, uncomplicated F17.[address] [address] 05/01/2024 Shoshana Rosy Insomnia G47.00 ; Bipolar 1 disorder F31.9 ; ADHD (attention deficit hyperactivity disorder) F90.9 ; MORENO (generalized anxiety disorder) F41.1 and PTSD (post-traumatic stress disorder) F43.10 [facility] [facility] [place] [address] 05/08/2024 Rozina Maddox Dermatitis L30.9 ; Rhinorrhea J34.89 ; Screening for deficiency anemia Z13.0 ; Screening for metabolic disorder Z13.228 ; Screening for diabetes mellitus Z13.1 ; Screening for hyperlipidemia Z13.220 and Exposure to potential infection Z20.[address] [address] 05/12/2024 Shoshana Rosy Insomnia G47.00 ; Bipolar 1 disorder F31.9 ; ADHD (attention deficit hyperactivity disorder) F90.9 ; MORENO (generalized anxiety disorder) F41.1 and PTSD (post-traumatic stress disorder) F43.10 [facility] [place] [address] 05/13/2024 Rozina Maddox Cough R05.9 ; Sciatica M54.30 and Right shoulder pain M25.511 [address] [address] [place] [address] 05/15/2024 Nahomy Hall Opioid use disorder F11.99 ; Obesity (BMI 30-39.9) E66.9 and Tobacco use disorder F17.200 [address] [address] [place] [address] 05/20/2024 Rozina Maddox Bilateral low back pain with right-sided sciatica, unspecified chronicity M54.41 ; Nasal congestion R09.81 ; Cough R05.9 and Body aches R52 [address] [address] 05/21/2024 Shoshana Rosy Insomnia G47.00 ; Bipolar 1 disorder F31.9 ; ADHD (attention deficit hyperactivity disorder) F90.9 ; MORENO (generalized anxiety disorder) F41.1 ; PTSD (post-traumatic stress disorder) F43.10 and Borderline personality disorder F60.[address] [address] 05/30/2024 Nilesh Hancock Shoulder pain, right M25.511 ; Neuropathy G62.9 ; Chronic allergic rhinitis J30.9 ; Vitamin D deficiency E55.9 ; Mild intermittent asthma without complication J45.20 ; Obesity (BMI 30-39.9) E66.9 ; Nutritional counseling Z71.3 and Nicotine dependence, unspecified, uncomplicated F17.[address] [address] 06/04/2024 Shoshana Rosy Insomnia G47.00 ; ADHD (attention deficit hyperactivity disorder) F90.9 ; Bipolar 1 disorder F31.9 ; MORENO (generalized anxiety disorder) F41.1 ; PTSD (post-traumatic stress disorder) F43.10 and Borderline personality disorder F60.[address] [address] 06/13/2024 Jennelly Hall Opioid use disorder F11.99 ; Nutritional counseling Z71.3 and Obesity (BMI 30-39.9) E66.[address] [address] 06/16/2024 Shoshana Rosy Insomnia G47.00 ; ADHD (attention deficit hyperactivity disorder) F90.9 ; Bipolar 1 disorder F31.9 ; MORENO (generalized anxiety disorder) F41.1 ; PTSD (post-traumatic stress disorder) F43.10 and Borderline personality disorder F60.[address] [address] 06/23/2024 Shoshana Rosy Insomnia G47.00 ; ADHD (attention deficit hyperactivity disorder) F90.9 ; Bipolar 1 disorder F31.9 ; MORENO (generalized anxiety disorder) F41.1 ; PTSD (post-traumatic stress disorder) F43.10 and Borderline personality disorder F60.[address] [place] [address] 06/26/2024 Nilesh Hancock Bilateral low back pain with right-sided sciatica, unspecified chronicity M54.41 ; Nondiabetic hypoglycemia E16.2 ; Obesity (BMI 30-39.9) E66.9 ; Nutritional counseling Z71.3 and Nicotine dependence, unspecified, uncomplicated F17.[address] [address] 07/08/2024 Shoshana Rosy Insomnia G47.00 ; ADHD (attention deficit hyperactivity disorder) F90.9 ; Bipolar 1 disorder F31.9 ; MORENO (generalized anxiety disorder) F41.1 ; PTSD (post-traumatic stress disorder) F43.10 and Borderline personality disorder F60.[address] [place] [address] 07/11/2024 Nilesh Hancock Opioid use disorder F11.99 ; Obesity (BMI 30-39.9) E66.9 and Nutritional counseling Z71.[address] [address] 07/29/2024 Shoshana Rosy Insomnia G47.00 ; ADHD (attention deficit hyperactivity disorder) F90.9 ; Bipolar 1 disorder F31.9 ; MORENO (generalized anxiety disorder) F41.1 ; PTSD (post-traumatic stress disorder) F43.10 and Borderline personality disorder F60.[address] [place] [address] 08/06/2024 Luiz Calhoun Opioid use disorder F11.99 ; Patellofemoral arthralgia of left knee M25.562 and Abrasion T14.8XXA [address] [address] 08/12/2024 Shoshana Rosy Insomnia G47.00 ; ADHD (attention deficit hyperactivity disorder) F90.9 ; Bipolar 1 disorder F31.9 ; MORENO (generalized anxiety disorder) F41.1 ; PTSD (post-traumatic stress disorder) F43.10 and Borderline personality disorder F60.3 [facility] [address] [place] [address] 08/14/2024 Rozina Short Migraine G43.909 and Over weight E66.3 [facility] [address] [place] [address] 08/25/2024 Shoshana Rosy Insomnia G47.00 ; ADHD (attention deficit hyperactivity disorder) F90.9 ; Bipolar 1 disorder F31.9 ; MORENO (generalized anxiety disorder) F41.1 ; PTSD (post-traumatic stress disorder) F43.10 and Borderline personality disorder F60.3 [address] [place] [address] 09/08/2024 Shoshana Rosy Insomnia G47.00 ; ADHD (attention deficit hyperactivity disorder) F90.9 ; Bipolar 1 disorder F31.9 ; MORENO (generalized anxiety disorder) F41.1 ; PTSD (post-traumatic stress disorder) F43.10 and Borderline personality disorder F60.3 [facility] [address] [place] [address] 09/15/2024 Gudelia Tanwangco Opioid use disorder F11.99 and Nicotine dependence, unspecified, uncomplicated F17.[address] [address] 09/22/2024 Shoshana Rosy Insomnia G47.00 ; ADHD (attention deficit hyperactivity disorder) F90.9 ; Bipolar 1 disorder F31.9 ; MORENO (generalized anxiety disorder) F41.1 ; PTSD (post-traumatic stress disorder) F43.10 and Borderline personality disorder F60.[address] [address] 10/15/2024 Shoshana Rosy Insomnia G47.00 ; ADHD (attention deficit hyperactivity disorder) F90.9 ; Bipolar 1 disorder F31.9 ; MORENO (generalized anxiety disorder) F41.1 ; PTSD (post-traumatic stress disorder) F43.10 ; Borderline personality disorder F60.3 and Cocaine use disorder F14.[address] [place] [address] 10/21/2024 Shannon Huertafiabdelrahman Opioid use disorder F11.99 and Over weight E66.3 [facility] [address] [address] 11/03/2024 Shoshana Rosy Insomnia G47.00 ; ADHD (attention deficit hyperactivity disorder) F90.9 ; Bipolar 1 disorder F31.9 ; MORENO (generalized anxiety disorder) F41.1 ; PTSD (post-traumatic stress disorder) F43.10 ; Borderline personality disorder F60.3 and Cocaine use disorder F14.[address] [address] 11/26/2023 Ann Gotti [address] [address] 12/03/[address] [address] 12/04/2023 Nahomy Hall Opioid use disorder F11.[address] [address] 12/04/[address] [address] 12/06/2023 Shannon Ravilufiabdelrahman Opioid use disorder F11.[address] [address] 12/07/2023 Ann Gotti ADHD (attention deficit hyperactivity disorder) F90.[address] [place] [address] 12/14/2023 Ann Gotti [address] [address] 12/19/2023 Ann Gotti [address] [place] [address] 01/11/2024 Sade Miller [address] [place] [address] 01/11/2024 [address] Hu[address]delrahman [address] [place] [address] 01/11/2024 Shannon Huertaabdelrahman [address] [place] [address] 02/05/2024 Celestina Richey [address] [place] [address] 04/14/2024 Rozina Maddox [facility] [address] [place] [address] 04/17/2024 Jayne Mims ADHD (attention deficit hyperactivity disorder) F90.9 [address] [address] [place] [address] 04/17/2024 Shoshana Gallegos [facility] [address] [place] [address] 04/18/2024 Nilesh Hancock [address] [address] [place] [address] 04/23/2024 Nilesh Hancock [address] [place] [address] 04/23/2024 Celestina Richey [address] [place] [address] 04/23/2024 Celestina Richey [address] [facility] [place] [address] 04/24/2024 Nilesh Hancock Vaginitis N76.0 and Trichomoniasis of vagina A59.[address] [place] [address] 04/28/2024 Nilesh Hancock [facility] [address] [place] [address] 04/28/2024 Shoshana Gallegos Insomnia G47.00 [facility] [address] [place] [address] 05/01/2024 Nilesh Hancock Opioid use disorder F11.99 [facility] [address] [place] [address] 05/01/2024 Shoshanademarco GarsiaRosy [facility] [address] [place] [address] 05/02/2024 Jayne Mims ADHD (attention deficit hyperactivity disorder) F90.[address] [place] [address] 05/05/2024 Shoshana Gallegos [facility] [address] [place] [address] 05/08/2024 Rozina Maddox [facility] [address] [place] [address] 05/12/2024 Cyn Cardona ADHD (attention deficit hyperactivity disorder) F90.[address] [place] [address] 05/15/2024 Rozina Maddox Screening for breast cancer Z12.[address] [place] [address] 05/15/2024 Nilesh Hancock [facility] [address] [place] [address] 05/15/2024 Niles[address] Méndez[address] [place] [address] 05/20/2024 Nilesh Hancock [address] [place] [address] 05/22/2024 Nilesh Hancock [facility] [address] [place] [address] 05/23/2024 Nilesh Hancock [address] [place] [address] 05/30/2024 [address]ian [address] [place] [address] 06/04/2024 Nilesh Hancock [address] [place] [address] 06/04/2024 Shoshanademarco GarsiaRosy [facility] [address] [place] [address] 06/06/2024 Nilesh Hancock [address] [place] [address] 06/09/2024 Nilesh Hancock Body aches R52 [place] [place] [address] 06/09/2024 Shoshana Rosy [address] [place] [address] 06/09/2024 Nilesh Hancock [address] [place] [address] 06/10/[address] [place] [address] 06/13/2024 Nilesh Hancock Nutritional counseling Z71.3 [facility] [address] [place] [address] 06/13/[address] [place] [address] 06/18/2024 Nilesh Hancock [address] [place] [address] 06/19/2024 Shoshana Gallegos [address] [place] [address] 06/27/2024 Shoshana Garsiassian [facility] [address] [place] [address] 06/30/2024 Nilesh Hancock [facility] [address] [place] [address] 06/30/2024 Shoshana Garsiassian [facility] [address] [place] [address] 07/01/2024 Shoshana Garsiassian [address] [place] [address] 07/04/2024 Nilesh Hancock [facility] [address] [place] [address] 07/07/[address] [address] 07/30/2024 Shannon Huertaabdelrahman [address] [place] [address] 07/31/2024 [facility] [address] [place] [address] 08/07/2024 Shoshana Rosy ADHD (attention deficit hyperactivity disorder) F90.[address] [place] [address] 08/07/2024 Shoshana Rosy ADHD (attention deficit hyperactivity disorder) F90.9 [facility] [address] [place] [address] 08/14/2024 Rozina Maddox [facility] [address] [place] [address] 08/14/2024 Rozina Maddox [address] [place] [address] 08/22/2024 Rozina Maddox [address] [place] [address] 09/05/2024 Rozina Maddox [facility] [address] [place] [address] 09/08/2024 Shoshana Gallegos [address] [place] [address] 09/12/2024 Luiz Calhoun [address] [place] [address] 09/23/2024 Shoshana Rosy MORENO (generalized anxiety disorder) F41.[address] [place] [address] 10/15/2024 Shoshanademarco GarsiaRosy [facility] [address] [place] [address] 10/16/2024 Shoshana Gallegos [facility] [address] [facility] [place] [place] [address] 10/17/2024 Fany Goel [facility] [address] [facility] [place] [address] 10/17/2024 Fany Goel [facility] [place] [address] 10/29/2024 Luiz Calhoun [address] [place] [address] 05/11/2024 Fanyyelitza Goel Assessments Encounter Date Diagnosis (ICD Code) Assessment Notes Treatment Notes Treatment Clinical Notes Section Notes 04/22/2024 Well woman exam with routine gynecological exam (ICD-10 - Z01.419) 04/22/2024 Breast lump (ICD-10 - N63.0) 08/07/2024 ADHD (attention deficit hyperactivity disorder) (ICD-10 - F90.9) 08/07/2024 ADHD (attention deficit hyperactivity disorder) (ICD-10 - F90.9) 12/13/2023 Anxiety (ICD-10 - F41.9) Practice deep breathing daily. Box Breathing. Practice mindfulness techniques Practice relaxation techniques Medications as prescribed. Discussed possible SEs, risks, and benefits. Continue Lyrica Continue with regular exercise and a healthy, balanced diet. Continue with therapy. Pt advised to call or seek immediate medical attention if they develop any new or worsening symptoms. Follow up in 1 month for recheck, sooner if needed. Patient/caregiver instructed to call or seek medical attention if any new or worsening symptoms. Red flag symptoms/indications for trip to ER reviewed. Patient/caregiver voiced understanding and agreement with the above. 12/07/2023 ADHD (attention deficit hyperactivity disorder) (ICD-10 - F90.9) 12/06/2023 Opioid use disorder (ICD-10 - F11.99) 12/06/2023 Nicotine dependence, unspecified, uncomplicated (ICD-10 - F17.200) 12/06/2023 Opioid use disorder (ICD-10 - F11.99) 08/06/2024 Opioid use disorder (ICD-10 - F11.99) 08/06/2024 Patellofemoral arthralgia of left knee (ICD-10 - M25.562) 07/08/2024 Insomnia (ICD-10 - G47.00) 12/04/2023 Opioid use disorder (ICD-10 - F11.99) 04/16/2024 Bilateral low back pain with right-sided sciatica, unspecified chronicity (ICD-10 - M54.41) 04/16/2024 Opioid use disorder (ICD-10 - F11.99) 04/15/2024 Shoulder pain, right (ICD-10 - M25.511) 04/15/2024 Adult general medical exam (ICD-10 - Z00.00) 11/03/2024 Insomnia (ICD-10 - G47.00) 10/21/2024 Over weight (ICD-10 - E66.3) 10/21/2024 Opioid use disorder (ICD-10 - F11.99) 10/15/2024 Insomnia (ICD-10 - G47.00) 09/08/2024 Insomnia (ICD-10 - G47.00) 08/14/2024 Migraine (ICD-10 - G43.909) 07/11/2024 Obesity (BMI 30-39.9) (ICD-10 - E66.9) 07/11/2024 Opioid use disorder (ICD-10 - F11.99) 04/17/2024 ADHD (attention deficit hyperactivity disorder) (ICD-10 - F90.9) 04/17/2024 Anxiety (ICD-10 - F41.9) 08/12/2024 Insomnia (ICD-10 - G47.00) 05/12/2024 ADHD (attention deficit hyperactivity disorder) (ICD-10 - F90.9) 05/12/2024 Insomnia (ICD-10 - G47.00) Continue Trazodone. Reviewed purpose (help with sleep), benefits, and risks - including increased thoughts or suicidality, inducing lucien, and/or male priapism. Call for problems with medication, side effects or need for dosage change. 09/23/2024 MORENO (generalized anxiety disorder) (ICD-10 - F41.1) 09/22/2024 Insomnia (ICD-10 - G47.00) 09/15/2024 Opioid use disorder (ICD-10 - F11.99) 08/25/2024 Insomnia (ICD-10 - G47.00) 07/29/2024 Insomnia (ICD-10 - G47.00) 05/01/2024 Opioid use disorder (ICD-10 - F11.99) 05/13/2024 Sciatica (ICD-10 - M54.30) Continue muscle relaxer, encouraged to stretch and stay active 05/13/2024 Cough (ICD-10 - R05.9) advised to increase fluids to thin secretions 05/13/2024 Screening for metabolic disorder (ICD-10 - Z13.228) 05/08/2024 Dermatitis (ICD-10 - L30.9) 05/08/2024 Rhinorrhea (ICD-10 - J34.89) 05/02/2024 ADHD (attention deficit hyperactivity disorder) (ICD-10 - F90.9) 06/26/2024 Bilateral low back pain with right-sided sciatica, unspecified chronicity (ICD-10 - M54.41) 06/26/2024 Nondiabetic hypoglycemia (ICD-10 - E16.2) 06/23/2024 Insomnia (ICD-10 - G47.00) Continue Trazodone. Reviewed purpose (help with sleep), benefits, and risks - including increased thoughts or suicidality, inducing lucien, and/or male priapism. Call for problems with medication, side effects or need for dosage change. 06/16/2024 Insomnia (ICD-10 - G47.00) Increase Trazodone. Reviewed purpose (help with sleep), benefits, and risks - including increased thoughts or suicidality, inducing lucien, and/or male priapism. Call for problems with medication, side effects or need for dosage change. 06/13/2024 Nutritional counseling (ICD-10 - Z71.3) 06/13/2024 Nutritional counseling (ICD-10 - Z71.3) 06/13/2024 Opioid use disorder (ICD-10 - F11.99) 06/09/2024 Body aches (ICD-10 - R52) 06/04/2024 Insomnia (ICD-10 - G47.00) Decrease Trazodone. Reviewed purpose (help with sleep), benefits, and risks - including increased thoughts or suicidality, inducing lucien, and/or male priapism. Call for problems with medication, side effects or need for dosage change. 05/30/2024 Neuropathy (ICD-10 - G62.9) 05/30/2024 Shoulder pain, right (ICD-10 - M25.511) 05/21/2024 Insomnia (ICD-10 - G47.00) Continue Trazodone. Reviewed purpose (help with sleep), benefits, and risks - including increased thoughts or suicidality, inducing lucien, and/or male priapism. Call for problems with medication, side effects or need for dosage change. 05/20/2024 Nasal congestion (ICD-10 - R09.81) 05/20/2024 Bilateral low back pain with right-sided sciatica, unspecified chronicity (ICD-10 - M54.41) 05/15/2024 Opioid use disorder (ICD-10 - F11.99) 05/15/2024 Screening for breast cancer (ICD-10 - Z12.31) 05/01/2024 Insomnia (ICD-10 - G47.00) Continue Trazodone. Reviewed purpose (help with sleep), benefits, and risks - including increased thoughts or suicidality, inducing lucien, and/or male priapism. Call for problems with medication, side effects or need for dosage change. 05/01/2024 Bipolar 1 disorder (ICD-10 - F31.9) Continue Lurasidone. Take as prescribed. Reviewed purpose (mood stability), benefits, and risks - low blood pressure, metabolic syndrome with high cholesterol or high blood sugars, change in cardiac conduction, nausea, vomiting, temporary or permanent movement disorders, and akathisia. Explained that no medication can be guaranteed to be 100% safe for baby or mother. Call for problems with medication, side effects or need for dosage change. 04/30/2024 Vitamin D deficiency (ICD-10 - E55.9) 04/30/2024 Mild intermittent asthma without complication (ICD-10 - J45.20) 04/28/2024 Insomnia (ICD-10 - G47.00) 04/24/2024 Vaginitis (ICD-10 - N76.0) 04/24/2024 Trichomoniasis of vagina (ICD-10 - A59.01) 05/01/2024 ADHD (attention deficit hyperactivity disorder) (ICD-10 - F90.9) Continue Vyvanse. Take as prescribed. Reviewed purpose (improve attention and focus and decrease eating binges), benefits, and risks including high heart rate, high blood pressure, and increased anxiety. Patient cautioned that ADHD medications have been associated with an increased risk of cardiovascular disease, especially hypertension and arterial disease. Medications may need to be tapered down or even stopped based on cardiovascular parameters. Refer to package/pharmacy insert for a full listing of side effects. Call for problems with medication, side effects or need for dosage change. 04/30/2024 Lump in neck (ICD-10 - R22.1) 05/21/2024 ADHD (attention deficit hyperactivity disorder) (ICD-10 - F90.9) Continue Vyvanse. Take as prescribed. Reviewed purpose (improve attention and focus and decrease eating binges), benefits, and risks including high heart rate, high blood pressure, and increased anxiety. Patient cautioned that ADHD medications have been associated with an increased risk of cardiovascular disease, especially hypertension and arterial disease. Medications may need to be tapered down or even stopped based on cardiovascular parameters. Refer to package/pharmacy insert for a full listing of side effects. Call for problems with medication, side effects or need for dosage change. 05/21/2024 Bipolar 1 disorder (ICD-10 - F31.9) Continue Lurasidone. Take as prescribed. Reviewed purpose (mood stability), benefits, and risks - low blood pressure, metabolic syndrome with high cholesterol or high blood sugars, change in cardiac conduction, nausea, vomiting, temporary or permanent movement disorders, and akathisia. Explained that no medication can be guaranteed to be 100% safe for baby or mother. Call for problems with medication, side effects or need for dosage change. 05/15/2024 Obesity (BMI 30-39.9) (ICD-10 - E66.9) 05/20/2024 Cough (ICD-10 - R05.9) 05/30/2024 Chronic allergic rhinitis (ICD-10 - J30.9) 06/26/2024 Obesity (BMI 30-39.9) (ICD-10 - E66.9) 06/04/2024 ADHD (attention deficit hyperactivity disorder) (ICD-10 - F90.9) Increase Vyvanse. Take as prescribed. Reviewed purpose (improve attention and focus and decrease eating binges), benefits, and risks including high heart rate, high blood pressure, and increased anxiety. Patient cautioned that ADHD medications have been associated with an increased risk of cardiovascular disease, especially hypertension and arterial disease. Medications may need to be tapered down or even stopped based on cardiovascular parameters. Refer to package/pharmacy insert for a full listing of side effects. Call for problems with medication, side effects or need for dosage change. 06/13/2024 Obesity (BMI 30-39.9) (ICD-10 - E66.9) 06/16/2024 ADHD (attention deficit hyperactivity disorder) (ICD-10 - F90.9) Start Adderall XR. Take as prescribed. Reviewed purpose (improve attention and focus and decrease eating binges), benefits, and risks including high heart rate, high blood pressure, and increased anxiety. Patient cautioned that ADHD medications have been associated with an increased risk of cardiovascular disease, especially hypertension and arterial disease. Medications may need to be tapered down or even stopped based on cardiovascular parameters. Refer to package/pharmacy insert for a full listing of side effects. Call for problems with medication, side effects or need for dosage change. 06/23/2024 ADHD (attention deficit hyperactivity disorder) (ICD-10 - F90.9) Restart Vyvanse. Take as prescribed. Reviewed purpose (improve attention and focus and decrease eating binges), benefits, and risks including high heart rate, high blood pressure, and increased anxiety. Patient cautioned that ADHD medications have been associated with an increased risk of cardiovascular disease, especially hypertension and arterial disease. Medications may need to be tapered down or even stopped based on cardiovascular parameters. Refer to package/pharmacy insert for a full listing of side effects. Call for problems with medication, side effects or need for dosage change. 05/08/2024 Screening for deficiency anemia (ICD-10 - Z13.0) 05/13/2024 Screening for hyperlipidemia (ICD-10 - Z13.220) 05/13/2024 Right shoulder pain (ICD-10 - M25.511) Biofreeze samples given to MA to give to unit staff for PRN application 07/29/2024 ADHD (attention deficit hyperactivity disorder) (ICD-10 - F90.9) 09/15/2024 Nicotine dependence, unspecified, uncomplicated (ICD-10 - F17.200) 08/25/2024 ADHD (attention deficit hyperactivity disorder) (ICD-10 - F90.9) *discussed with patient that 70 mg is max dose and if her ADHD symptoms are still not controlled, we will not try another stimulant d/t her hx of SONIYA and side effects from Adderall in the past. Encouraged coping skills such as white noise and fidget toys while working on school work. 09/22/2024 ADHD (attention deficit hyperactivity disorder) (ICD-10 - F90.9) *discussed with patient that 70 mg is max dose and if her ADHD symptoms are still not controlled, we will not try another stimulant d/t her hx of SONIYA and side effects from Adderall in the past. Encouraged coping skills such as white noise and fidget toys while working on school work. 05/12/2024 Bipolar 1 disorder (ICD-10 - F31.9) Continue Lurasidone. Take as prescribed. Reviewed purpose (mood stability), benefits, and risks - low blood pressure, metabolic syndrome with high cholesterol or high blood sugars, change in cardiac conduction, nausea, vomiting, temporary or permanent movement disorders, and akathisia. Explained that no medication can be guaranteed to be 100% safe for baby or mother. Call for problems with medication, side effects or need for dosage change. 08/12/2024 ADHD (attention deficit hyperactivity disorder) (ICD-10 - F90.9) 04/17/2024 Bipolar disorder (ICD-10 - F31.9) Continue Lurasidone. Take as prescribed. Reviewed purpose (mood stability), benefits, and risks - low blood pressure, metabolic syndrome with high cholesterol or high blood sugars, change in cardiac conduction, nausea, vomiting, temporary or permanent movement disorders, and akathisia. Explained that no medication can be guaranteed to be 100% safe for baby or mother. Call for problems with medication, side effects or need for dosage change. 04/17/2024 Substance use disorder (ICD-10 - F19.90) Has hx of ETOH, marijuana, meth, cocaine, and heroin abuse. Also hx of IV drug use. 07/11/2024 Nutritional counseling (ICD-10 - Z71.3) 08/14/2024 Over weight (ICD-10 - E66.3) 09/08/2024 ADHD (attention deficit hyperactivity disorder) (ICD-10 - F90.9) *discussed with patient that 70 mg is max dose and if her ADHD symptoms are still not controlled, we will not try another stimulant d/t her hx of SONIYA and side effects from Adderall in the past. Encouraged coping skills such as white noise and fidget toys while working on school work. 10/15/2024 ADHD (attention deficit hyperactivity disorder) (ICD-10 - F90.9) *discussed with patient that 70 mg is max dose and if her ADHD symptoms are still not controlled, we will not try another stimulant d/t her hx of SONIYA and side effects from Adderall in the past. Encouraged coping skills such as white noise and fidget toys while working on school work. *holding stimulant d/t recent drug relapse and lucien. 11/03/2024 ADHD (attention deficit hyperactivity disorder) (ICD-10 - F90.9) *discussed with patient that 70 mg is max dose and if her ADHD symptoms are still not controlled, we will not try another stimulant d/t her hx of SONIYA and side effects from Adderall in the past. Encouraged coping skills such as white noise and fidget toys while working on school work. *holding stimulant d/t recent drug relapse and lucien. 04/15/2024 Sciatica (ICD-10 - M54.30) 07/08/2024 ADHD (attention deficit hyperactivity disorder) (ICD-10 - F90.9) 04/16/2024 Thyroid nodule (ICD-10 - E04.1) Nothing noted on exam, check labs, f/u to reassess. 08/06/2024 Abrasion (ICD-10 - T14.8XXA) monitor for healing, s/sx infection right lateral ankile 12/06/2023 Obesity (BMI 30-39.9) (ICD-10 - E66.9) 12/13/2023 Bipolar disorder (ICD-10 - F31.9) Refill Latuda and Trazodone, effective for the patient in the past. Continue Mirtazapine 15mg at HS PHQ-9 is 9 today. Denies any SIB/SI/HI. Refusing warm handoff to crisis, pt has crisis contact information. Antipsychotics education - reviewed side effects which may include metabolic syndrome, movement disorders (EPS/extrapyramidal symptoms & TD/Tardive dyskinesia) - potentially permanent movement abnormalities, NMS/neuroleptic malignant syndrome (high fever, very rigid muscles, and rapid heartbeat - potentially fatal), sedation, and cardiac rhythm abnormalities. 12/13/2023 Psychosis (ICD-10 - F29) R/O Schizoaffecti ve, Substance Induced Psychosis R/O Schizoaffective, Substance Induced Psychosis Refill Latuda and monitor symptoms, may need to consider Olanzapine, Vraylar 12/06/2023 Nutritional counseling (ICD-10 - Z71.3) 04/16/2024 Vitamin B deficiency (ICD-10 - E53.9) 07/08/2024 Bipolar 1 disorder (ICD-10 - F31.9) 11/03/2024 Bipolar 1 disorder (ICD-10 - F31.9) 10/15/2024 Bipolar 1 disorder (ICD-10 - F31.9) 10/15/2024 MORENO (generalized anxiety disorder) (ICD-10 - F41.1) 09/08/2024 Bipolar 1 disorder (ICD-10 - F31.9) 04/17/2024 ADHD (attention deficit hyperactivity disorder) (ICD-10 - F90.9) Start Vyvanse. Take as prescribed. Reviewed purpose (improve attention and focus and decrease eating binges), benefits, and risks including high heart rate, high blood pressure, and increased anxiety. Patient cautioned that ADHD medications have been associated with an increased risk of cardiovascular disease, especially hypertension and arterial disease. Medications may need to be tapered down or even stopped based on cardiovascular parameters. Refer to package/pharmacy insert for a full listing of side effects. Call for problems with medication, side effects or need for dosage change. 08/12/2024 Bipolar 1 disorder (ICD-10 - F31.9) 09/22/2024 Bipolar 1 disorder (ICD-10 - F31.9) 08/25/2024 Bipolar 1 disorder (ICD-10 - F31.9) 05/12/2024 ADHD (attention deficit hyperactivity disorder) (ICD-10 - F90.9) Increase Vyvanse. Take as prescribed. Reviewed purpose (improve attention and focus and decrease eating binges), benefits, and risks including high heart rate, high blood pressure, and increased anxiety. Patient cautioned that ADHD medications have been associated with an increased risk of cardiovascular disease, especially hypertension and arterial disease. Medications may need to be tapered down or even stopped based on cardiovascular parameters. Refer to package/pharmacy insert for a full listing of side effects. Call for problems with medication, side effects or need for dosage change. 07/29/2024 Bipolar 1 disorder (ICD-10 - F31.9) 05/13/2024 Screening for deficiency anemia (ICD-10 - Z13.0) 05/08/2024 Screening for metabolic disorder (ICD-10 - Z13.228) 06/23/2024 Bipolar 1 disorder (ICD-10 - F31.9) Continue Lurasidone. Take as prescribed. Reviewed purpose (mood stability), benefits, and risks - low blood pressure, metabolic syndrome with high cholesterol or high blood sugars, change in cardiac conduction, nausea, vomiting, temporary or permanent movement disorders, and akathisia. Explained that no medication can be guaranteed to be 100% safe for baby or mother. Call for problems with medication, side effects or need for dosage change. 06/26/2024 Nutritional counseling (ICD-10 - Z71.3) 06/16/2024 Bipolar 1 disorder (ICD-10 - F31.9) Continue Lurasidone. Take as prescribed. Reviewed purpose (mood stability), benefits, and risks - low blood pressure, metabolic syndrome with high cholesterol or high blood sugars, change in cardiac conduction, nausea, vomiting, temporary or permanent movement disorders, and akathisia. Explained that no medication can be guaranteed to be 100% safe for baby or mother. Call for problems with medication, side effects or need for dosage change. 06/04/2024 Bipolar 1 disorder (ICD-10 - F31.9) Continue Lurasidone. Take as prescribed. Reviewed purpose (mood stability), benefits, and risks - low blood pressure, metabolic syndrome with high cholesterol or high blood sugars, change in cardiac conduction, nausea, vomiting, temporary or permanent movement disorders, and akathisia. Explained that no medication can be guaranteed to be 100% safe for baby or mother. Call for problems with medication, side effects or need for dosage change. Continue benztropine. Take as prescribed. Reviewed purpose, benefits, and risks - including dry mouth, constipation, urinary retention, confusion, and hallucinations. Call for problems with medication, side effects or need for dosage change. 05/30/2024 Vitamin D deficiency (ICD-10 - E55.9) 05/20/2024 Body aches (ICD-10 - R52) 05/15/2024 Tobacco use disorder (ICD-10 - F17.200) 05/21/2024 MORENO (generalized anxiety disorder) (ICD-10 - F41.1) Stop Seroquel PRN. Take 2 tabs once daily x1 week, then 1 tab once daily x1 week, then D/C completely. Start Propranolol. Take as prescribed. Reviewed purpose (decrease anxiety and panic attacks), benefits, and risks - including low pulse rate, low blood pressure, sexual dysfunction, wheezing/asthma attack, weight gain, increased blood sugar, and sedation. Call for problems with medication, side effects or need for dosage change. Start Venlafaxine. Antidepressant education - reviewed side effects which may include increased risk of suicide, anxiety, sleep disturbance, nausea, dry mouth, increased bruising, sexual dysfunction, lucien, wt gain, and serotonin syndrome. Need to notify provider if planning or experiencing . Call for problems with medication, side effects or need for dosage change. 04/30/2024 Acute pain of right shoulder (ICD-10 - M25.511) Continue using sling as needed for comfort, f/u with ortho as instructed. 05/01/2024 MORENO (generalized anxiety disorder) (ICD-10 - F41.1) Start Seroquel PRN. Take as prescribed. Reviewed purpose (mood stability), benefits, and risks - low blood pressure, metabolic syndrome with high cholesterol or high blood sugars, change in cardiac conduction, nausea, vomiting, temporary or permanent movement disorders, and akathisia. Explained that no medication can be guaranteed to be 100% safe for baby or mother. Call for problems with medication, side effects or need for dosage change. 04/30/2024 Obesity (BMI 30-39.9) (ICD-10 - E66.9) 05/01/2024 PTSD (post-traumatic stress disorder) (ICD-10 - F43.10) 05/21/2024 PTSD (post-traumatic stress disorder) (ICD-10 - F43.10) 05/30/2024 Mild intermittent asthma without complication (ICD-10 - J45.20) 06/04/2024 MORENO (generalized anxiety disorder) (ICD-10 - F41.1) Continue Propranolol. Take as prescribed. Reviewed purpose (decrease anxiety and panic attacks), benefits, and risks - including low pulse rate, low blood pressure, sexual dysfunction, wheezing/asthma attack, weight gain, increased blood sugar, and sedation. Call for problems with medication, side effects or need for dosage change. Continue Venlafaxine. Antidepressant education - reviewed side effects which may include increased risk of suicide, anxiety, sleep disturbance, nausea, dry mouth, increased bruising, sexual dysfunction, lucien, wt gain, and serotonin syndrome. Need to notify provider if planning or experiencing . Call for problems with medication, side effects or need for dosage change. 06/16/2024 MORENO (generalized anxiety disorder) (ICD-10 - F41.1) Increase Venlafaxine. Antidepressant education - reviewed side effects which may include increased risk of suicide, anxiety, sleep disturbance, nausea, dry mouth, increased bruising, sexual dysfunction, lucien, wt gain, and serotonin syndrome. Need to notify provider if planning or experiencing . Call for problems with medication, side effects or need for dosage change. 06/23/2024 MORENO (generalized anxiety disorder) (ICD-10 - F41.1) Continue Venlafaxine. Antidepressant education - reviewed side effects which may include increased risk of suicide, anxiety, sleep disturbance, nausea, dry mouth, increased bruising, sexual dysfunction, lucien, wt gain, and serotonin syndrome. Need to notify provider if planning or experiencing . Call for problems with medication, side effects or need for dosage change. 06/26/2024 Nicotine dependence, unspecified, uncomplicated (ICD-10 - F17.200) 05/08/2024 Screening for diabetes mellitus (ICD-10 - Z13.1) 05/13/2024 Screening for diabetes mellitus (ICD-10 - Z13.1) 07/29/2024 MORENO (generalized anxiety disorder) (ICD-10 - F41.1) 08/25/2024 MORENO (generalized anxiety disorder) (ICD-10 - F41.1) 09/22/2024 MORENO (generalized anxiety disorder) (ICD-10 - F41.1) 05/12/2024 OMRENO (generalized anxiety disorder) (ICD-10 - F41.1) Continue Seroquel PRN. Take as prescribed. Reviewed purpose (mood stability), benefits, and risks - low blood pressure, metabolic syndrome with high cholesterol or high blood sugars, change in cardiac conduction, nausea, vomiting, temporary or permanent movement disorders, and akathisia. Explained that no medication can be guaranteed to be 100% safe for baby or mother. Call for problems with medication, side effects or need for dosage change. 08/12/2024 MORENO (generalized anxiety disorder) (ICD-10 - F41.1) 04/17/2024 Insomnia (ICD-10 - G47.00) Continue Trazodone. Reviewed purpose (help with sleep), benefits, and risks - including increased thoughts or suicidality, inducing lucien, and/or male priapism. Call for problems with medication, side effects or need for dosage change. 09/08/2024 MORENO (generalized anxiety disorder) (ICD-10 - F41.1) 11/03/2024 MORENO (generalized anxiety disorder) (ICD-10 - F41.1) 10/15/2024 PTSD (post-traumatic stress disorder) (ICD-10 - F43.10) 07/08/2024 MORENO (generalized anxiety disorder) (ICD-10 - F41.1) 04/16/2024 Adult general medical exam (ICD-10 - Z00.00) 12/13/2023 Substance use disorder (ICD-10 - F19.90) Has hx of ETOH, marijuana, meth, cocaine, and heroin abuse. Also hx of IV drug use. Reported last use 10/02/2023 Continue with MAT services 12/13/2023 Nicotine abuse (ICD-10 - Z72.0) 07/08/2024 PTSD (post-traumatic stress disorder) (ICD-10 - F43.10) 04/16/2024 Obesity (BMI 30-39.9) (ICD-10 - E66.9) 11/03/2024 PTSD (post-traumatic stress disorder) (ICD-10 - F43.10) 10/15/2024 Borderline personality disorder (ICD-10 - F60.3) 09/08/2024 PTSD (post-traumatic stress disorder) (ICD-10 - F43.10) 05/12/2024 PTSD (post-traumatic stress disorder) (ICD-10 - F43.10) 08/12/2024 PTSD (post-traumatic stress disorder) (ICD-10 - F43.10) 09/22/2024 PTSD (post-traumatic stress disorder) (ICD-10 - F43.10) 07/29/2024 PTSD (post-traumatic stress disorder) (ICD-10 - F43.10) 08/25/2024 PTSD (post-traumatic stress disorder) (ICD-10 - F43.10) 05/13/2024 Exposure to potential infection (ICD-10 - Z20.9) 05/08/2024 Screening for hyperlipidemia (ICD-10 - Z13.220) 06/16/2024 PTSD (post-traumatic stress disorder) (ICD-10 - F43.10) 06/23/2024 PTSD (post-traumatic stress disorder) (ICD-10 - F43.10) 05/30/2024 Obesity (BMI 30-39.9) (ICD-10 - E66.9) 06/04/2024 PTSD (post-traumatic stress disorder) (ICD-10 - F43.10) 05/21/2024 Borderline personality disorder (ICD-10 - F60.3) 04/30/2024 Nutritional counseling (ICD-10 - Z71.3) 04/30/2024 Nicotine dependence, unspecified, uncomplicated (ICD-10 - F17.200) 05/30/2024 Nutritional counseling (ICD-10 - Z71.3) 06/04/2024 Borderline personality disorder (ICD-10 - F60.3) 06/16/2024 Borderline personality disorder (ICD-10 - F60.3) 06/23/2024 Borderline personality disorder (ICD-10 - F60.3) 05/08/2024 Exposure to potential infection (ICD-10 - Z20.9) 09/22/2024 Borderline personality disorder (ICD-10 - F60.3) 07/29/2024 Borderline personality disorder (ICD-10 - F60.3) 08/25/2024 Borderline personality disorder (ICD-10 - F60.3) 08/12/2024 Borderline personality disorder (ICD-10 - F60.3) 10/15/2024 Cocaine use disorder (ICD-10 - F14.10) 09/08/2024 Borderline personality disorder (ICD-10 - F60.3) 11/03/2024 Borderline personality disorder (ICD-10 - F60.3) 04/16/2024 Nutritional counseling (ICD-10 - Z71.3) 07/08/2024 Borderline personality disorder (ICD-10 - F60.3) 12/13/2023 ADHD (attention deficit hyperactivity disorder) (ICD-10 - F90.9) Discussed healthy habits to help reduce symptoms. Medications as prescribed. Risks vs benefits discussed at length. Possible side effects reviewed. All questions answered. Parent denies any known family history of heart dz. DC Qelbree Start Stattera 80mg once daily Follow up in 1 month, sooner PRN. 04/16/2024 Nicotine dependence, unspecified, uncomplicated (ICD-10 - F17.200) 11/03/2024 Cocaine use disorder (ICD-10 - F14.10) 05/30/2024 Nicotine dependence, unspecified, uncomplicated (ICD-10 - F17.200) 12/06/2023 Other Client agrees to take medication as prescribed. Discussed medication side effects, adverse effects, risks, benefits, as well as interactions. Encouraged non-use of opioids and other illicit substances. Has naloxone. Understand that discontinuing buprenorphine increases the risk of overdose upon return to illicit opioid use. Know that that use of alcohol or benzodiazepines with buprenorphine increases the risk of overdose and . Education provided about safe storage of medications. Encourage participation in recovery groups/counseling services. Patient understands that all treating providers/physicians should be informed of buprenorphine use as part of a Medication Assisted Recovery program. Contact office with questions or concerns. 12/06/2023 Other Provided case management services to address social determinants of health needs and reduce barriers to health care services. 12/13/2023 Other Patient was edu cated on diagnosis and symptoms. Discussed the treatment plan, patient is agreeable and accepting of treatment plan. Patient denies further questions or concerns currently. Discussed sleep hygiene and caffeine intake. Encouraged to improve diet, get regular exercise, daily relaxation, and work on managing stress levels.Reminded pt to competeEncouraged counseling.Educated patient that if she is or planning to become , she is to let the provider know immediately.The Patient/Guardian is aware of the need to contact the office or return for an earlier appointment if any problems or concerns arise. May also contact the 24-hour crisis hotline (R), refer to the closest emergency room or call 911 if new symptoms arise of existing symptoms worsen; the Patient/Guardian is aware that this would apply to symptoms such as: suicidal ideation, homicidal ideation, high risk behaviors, manic symptoms, psychotic symptoms, physical symptoms, or any other symptoms that may be dangerous to self or others.Greater than 50% of time spent on coordination and counseling where psychopharmacology as well as psychotherapeutic interventions were discussed along with review of treatments in the past.Patient/Guardian was educated about treatments including benefits and risks, alternatives, potential medication side effects, black box warning, and risks of failure if not treated. The Patient/Guardian asked appropriate questions, appeared to understand the answers, and decided to accept the treatment and continue being followed.Discussed the importance of compliance with medications due to the risk of relapse of symptoms.Discussed the risks of taking psychotropic medication when combined with substance use/abuse and/or drinking alcohol. 04/15/2024 Other Continue treatment as recommended by [facility] staff. Encouraged patient to obtain routine medical care with patient's own primary care provider or establish as a patient at [facility] if no current primary care provider. 04/17/2024 Other May self-administer medications or be administered own oral medications per [facility] protocols. Provided informed consent with understanding of side effects, adverse effects, risks and benefits as well as alternative treatments as previously discussed and with the above recommended medications & other aspects of the treatment program. Agrees to return sooner if symptoms worsen or suicidal or homicidal ideations occur. Unable to complete full AIMS due to nature of appt, denies any irregular muscle movements or facial tics; no irregular movements observed during Zoom appt. Plan: -Start Vyvanse 30 mg once daily -Continue Lurasidone 20 mg in AM 40 mg in PM -Continue Trazodone HCl 100 mg QHS PRN -Follow up: 2 weeks [] Hard Rx handed to patient [] Rx phoned into pharmacy [x] Rx faxed/e-prescribed into pharmacy [x] PDMP Reviewed [] [facility] Reviewed Encouraged by Shoshana Gallegos PMHNP-BC to: [] consider utilizing therapist/counselor/s ocial worker/psychologist, referral given [x] continue with therapist/counselor/s ocial worker/psychologist Psychoeducation: -Treatment options discussed in detail with patient/guardian verbalizing understanding of treatment rationales. -Side effects and benefits of all medications prescribed discussed at length between psychiatric prescribing provider and patient/guardian along with the risks associated of [id number] interactions, including but not limited to prescription medications, OTC medications, vitamins, minerals and herbal supplements. -Patient/Guardian and provider dialogue showcased verbalized understanding from patient on rationales of medication risk vs benefits. 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 -Reduction of stress and anxiety to aid in focus and concentration discussed, again, with patient/guardian physically nodding, voicing understanding, and engaged in treatment plan with Shoshana Gallegos [facility]. -Perceiving complete understanding of rationale by patient/guardian and willingness to adhere to formulated plan of care by prescriber with patient/guardian buy-in, willingness to participate actively in plan of care and willing to take charge of own care. -Although geared for female patients, all patients/guardians are informed by prescribing provider of risks of medications that could potentially be taken by female/women within their [place] of influence and that women who use medicine during have a higher chance of having a baby with defects. -Patient/Guardian denies being and/or knowing of women who are at present and denies wanting to become in the foreseeable future, 0-6 months from now. -Patient/Guardian again informed of the risk of pharmaceutical medications consumed during and how there are potential negative effects on the developing fetus. -Patient/Guardian verbalizes understanding of rationale and physically nods head in agreement that if a should occur, to consult with provider, SLIMER and/or Nurse Environmental Assistant to determine if prescribed medications should or should not be continued. -Instructions regarding both the medical/pharmacologic al and non-pharmacologic aspects of the treatments employed were given, and the patient/guardian seemed to understand this. Risks and benefits of treatment, and of non-treatment, were also discussed. The patient/guardian understands the more frequent side effects associated with the medications. -The use of psychotherapy was addressed today and will continue on an as needed basis for the foreseeable future. The choice is, of course, ultimately left to the patient/guardian. -Patient/Guardian was encouraged to make a follow-up appointment for the next visit. -Additional treatment was discussed and has been addressed on an ongoing basis within the context of this patient's illness, resources, progress, and other appropriate factors. Being compliant with a regular exercise routine, consistent medication use, ongoing psychotherapy, eating and sleeping well, as well as the importance of handling stress, was discussed. 05/01/2024 Other May self-administer medications or be administered own oral medications per [facility] protocols. Provided informed consent with understanding of side effects, adverse effects, risks and benefits as well as alternative treatments as previously discussed and with the above recommended medications & other aspects of the treatment program. Agrees to return sooner if symptoms worsen or suicidal or homicidal ideations occur. Unable to complete full AIMS due to nature of appt, denies any irregular muscle movements or facial tics; no irregular movements observed during Zoom appt. Plan: -Start Seroquel 25 mg 1-2 tabs PRN for anxiety -Continue Vyvanse 30 mg once daily -Continue Lurasidone 20 mg in AM, 40 mg in PM -Continue Trazodone 100 mg QHS PRN -Order [facility] -Follow up: 2 weeks [] Hard Rx handed to patient [] Rx phoned into pharmacy [x] Rx faxed/e-prescribed into pharmacy [x] PDMP Reviewed [] [facility] Reviewed Encouraged by Shoshana Gallegos PMHNP-BC to: [x] consider utilizing therapist/counselor/s ocial worker/psychologist, referral given [] continue with therapist/counselor/s ocial worker/psychologist Psychoeducation: -Treatment options discussed in detail with patient/guardian verbalizing understanding of treatment rationales. -Side effects and benefits of all medications prescribed discussed at length between psychiatric prescribing provider and patient/guardian along with the risks associated of ulaf-dm-[id number] interactions, including but not limited to prescription medications, OTC medications, vitamins, minerals and herbal supplements. -Patient/Guardian and provider dialogue showcased verbalized understanding from patient on rationales of medication risk vs benefits. 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 -Reduction of stress and anxiety to aid in focus and concentration discussed, again, with patient/guardian physically nodding, voicing understanding, and engaged in treatment plan with Shoshana Gallegos [facility]. -Perceiving complete understanding of rationale by patient/guardian and willingness to adhere to formulated plan of care by prescriber with patient/guardian buy-in, willingness to participate actively in plan of care and willing to take charge of own care. -Although geared for female patients, all patients/guardians are informed by prescribing provider of risks of medications that could potentially be taken by female/women within their [place] of influence and that women who use medicine during have a higher chance of having a baby with defects. -Patient/Guardian denies being and/or knowing of women who are at present and denies wanting to become in the foreseeable future, 0-6 months from now. -Patient/Guardian again informed of the risk of pharmaceutical medications consumed during and how there are potential negative effects on the developing fetus. -Patient/Guardian verbalizes understanding of rationale and physically nods head in agreement that if a should occur, to consult with provider, SLIMER and/or Nurse Environmental Assistant to determine if prescribed medications should or should not be continued. -Instructions regarding both the medical/pharmacologic al and non-pharmacologic aspects of the treatments employed were given, and the patient/guardian seemed to understand this. Risks and benefits of treatment, and of non-treatment, were also discussed. The patient/guardian understands the more frequent side effects associated with the medications. -The use of psychotherapy was addressed today and will continue on an as needed basis for the foreseeable future. The choice is, of course, ultimately left to the patient/guardian. -Patient/Guardian was encouraged to make a follow-up appointment for the next visit. -Additional treatment was discussed and has been addressed on an ongoing basis within the context of this patient's illness, resources, progress, and other appropriate factors. Being compliant with a regular exercise routine, consistent medication use, ongoing psychotherapy, eating and sleeping well, as well as the importance of handling stress, was discussed. 05/12/2024 Other May self-administer medications or be administered own oral medications per [place] protocols. Provided informed consent with understanding of side effects, adverse effects, risks and benefits as well as alternative treatments as previously discussed and with the above recommended medications & other aspects of the treatment program. Agrees to return sooner if symptoms worsen or suicidal or homicidal ideations occur. Unable to complete full AIMS due to nature of appt, patient had complaints of irregular muscle movements; no irregular movements observed during Zoom appt. Plan: -Start Cogentin 1 mg once daily -Increase Seroquel to 25 mg TID tabs PRN -Increase Vyvanse to 40 mg once daily -Continue Lurasidone 20 mg in AM, 40 mg in PM *no refill needed -Continue Trazodone 100 mg QHS PRN *no refill needed -Follow up: 2 weeks [] Hard Rx handed to patient [] Rx phoned into pharmacy [x] Rx faxed/e-prescribed into pharmacy [x] PDMP Reviewed [] [facility] Reviewed Encouraged by Shoshana AVALOSHNP-BC to: [x] consider utilizing therapist/counselor/s ocial worker/psychologist, referral given [] continue with therapist/counselor/s ocial worker/psychologist Psychoeducation: -Treatment options discussed in detail with patient/guardian verbalizing understanding of treatment rationales. -Side effects and benefits of all medications prescribed discussed at length between psychiatric prescribing provider and patient/guardian along with the risks associated of nxdi-kv-cdzp interactions, including but not limited to prescription medications, OTC medications, vitamins, minerals and herbal supplements. -Patient/Guardian and provider dialogue showcased verbalized understanding from patient on rationales of medication risk vs benefits. 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 -Reduction of stress and anxiety to aid in focus and concentration discussed, again, with patient/guardian physically nodding, voicing understanding, and engaged in treatment plan with Shoshana AVALOSHNP-BC. -Perceiving complete understanding of rationale by patient/guardian and willingness to adhere to formulated plan of care by prescriber with patient/guardian buy-in, willingness to participate actively in plan of care and willing to take charge of own care. -Although geared for female patients, all patients/guardians are informed by prescribing provider of risks of medications that could potentially be taken by female/women within their [place] of influence and that women who use medicine during have a higher chance of having a baby with defects. -Patient/Guardian denies being and/or knowing of women who are at present and denies wanting to become in the foreseeable future, 0-6 months from now. -Patient/Guardian again informed of the risk of pharmaceutical medications consumed during and how there are potential negative effects on the developing fetus. -Patient/Guardian verbalizes understanding of rationale and physically nods head in agreement that if a should occur, to consult with provider, SLIMER and/or Nurse Environmental Assistant to determine if prescribed medications should or should not be continued. -Instructions regarding both the medical/pharmacologic al and non-pharmacologic aspects of the treatments employed were given, and the patient/guardian seemed to understand this. Risks and benefits of treatment, and of non-treatment, were also discussed. The patient/guardian understands the more frequent side effects associated with the medications. -The use of psychotherapy was addressed today and will continue on an as needed basis for the foreseeable future. The choice is, of course, ultimately left to the patient/guardian. -Patient/Guardian was encouraged to make a follow-up appointment for the next visit. -Additional treatment was discussed and has been addressed on an ongoing basis within the context of this patient's illness, resources, progress, and other appropriate factors. Being compliant with a regular exercise routine, consistent medication use, ongoing psychotherapy, eating and sleeping well, as well as the importance of handling stress, was discussed. 05/15/2024 Other Discussed medication side effects, adverse effects, risks, benefits, as well as interactions. Encouraged non-use of opioids. Has naloxone. Recommended participation in recovery groups and/or counseling services. May contact office with questions or concerns. 05/21/2024 Other May self-administer medications or be administered own oral medications per [place] protocols. Provided informed consent with understanding of side effects, adverse effects, risks and benefits as well as alternative treatments as previously discussed and with the above recommended medications & other aspects of the treatment program. Agrees to return sooner if symptoms worsen or suicidal or homicidal ideations occur. Unable to complete full AIMS due to nature of appt; no irregular movements observed during Zoom appt. Plan: -*[facility] results were reviewed with patient. -D/C Seroquel 25 mg TID PRN d/t increased muscle movements -Start Venlafaxine 37.5 mg once daily -Start Propranolol 10 mg 1 tabs twice daily PRN -Continue Cogentin 1 mg once daily *no refill needed -Continue Vyvanse 40 mg once daily *no refill needed -Continue Lurasidone 20 mg in AM, 40 mg in PM *no refill needed -Continue Trazodone 100 mg QHS PRN *no refill needed -Follow up: 2 weeks [] Hard Rx handed to patient [] Rx phoned into pharmacy [x] Rx faxed/e-prescribed into pharmacy [x] PDMP Reviewed [x] [facility] Reviewed Encouraged by Shoshana Gallegos [facility]- to: [] consider utilizing therapist/counselor/s ocial worker/psychologist, referral given [x] continue with therapist/counselor/s ocial worker/psychologist Psychoeducation: -Treatment options discussed in detail with patient/guardian verbalizing understanding of treatment rationales. -Side effects and benefits of all medications prescribed discussed at length between psychiatric prescribing provider and patient/guardian along with the risks associated of iqxh-nv-kmjf interactions, including but not limited to prescription medications, OTC medications, vitamins, minerals and herbal supplements. -Patient/Guardian and provider dialogue showcased verbalized understanding from patient on rationales of medication risk vs benefits. 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 -Reduction of stress and anxiety to aid in focus and concentration discussed, again, with patient/guardian physically nodding, voicing understanding, and engaged in treatment plan with Shoshana Gallegos [facility]-. -Perceiving complete understanding of rationale by patient/guardian and willingness to adhere to formulated plan of care by prescriber with patient/guardian buy-in, willingness to participate actively in plan of care and willing to take charge of own care. -Although geared for female patients, all patients/guardians are informed by prescribing provider of risks of medications that could potentially be taken by female/women within their [place] of influence and that women who use medicine during have a higher chance of having a baby with defects. -Patient/Guardian denies being and/or knowing of women who are at present and denies wanting to become in the foreseeable future, 0-6 months from now. -Patient/Guardian again informed of the risk of pharmaceutical medications consumed during and how there are potential negative effects on the developing fetus. -Patient/Guardian verbalizes understanding of rationale and physically nods head in agreement that if a should occur, to consult with provider, SLIMER and/or Nurse Environmental Assistant to determine if prescribed medications should or should not be continued. -Instructions regarding both the medical/pharmacologic al and non-pharmacologic aspects of the treatments employed were given, and the patient/guardian seemed to understand this. Risks and benefits of treatment, and of non-treatment, were also discussed. The patient/guardian understands the more frequent side effects associated with the medications. -The use of psychotherapy was addressed today and will continue on an as needed basis for the foreseeable future. The choice is, of course, ultimately left to the patient/guardian. -Patient/Guardian was encouraged to make a follow-up appointment for the next visit. -Additional treatment was discussed and has been addressed on an ongoing basis within the context of this patient's illness, resources, progress, and other appropriate factors. Being compliant with a regular exercise routine, consistent medication use, ongoing psychotherapy, eating and sleeping well, as well as the importance of handling stress, was discussed. 06/04/2024 Other May self-administer medications or be administered own oral medications per [place] protocols. Provided informed consent with understanding of side effects, adverse effects, risks and benefits as well as alternative treatments as previously discussed and with the above recommended medications & other aspects of the treatment program. Agrees to return sooner if symptoms worsen or suicidal or homicidal ideations occur. Unable to complete full AIMS due to nature of appt, patient complains of mild irregular muscle movements; no irregular movements observed during Zoom appt. Plan: -Increase Vyvanse to 50 mg once daily -Decrease Trazodone to 50 mg QHS -Continue Venlafaxine 37.5 mg once daily -Continue Propranolol 10 mg BID PRN -Continue Benztropine 1 mg once daily -Continue Lurasidone 20 mg in AM, 40 mg in PM -Follow up: 2 weeks [] Hard Rx handed to patient [] Rx phoned into pharmacy [x] Rx faxed/e-prescribed into pharmacy [x] PDMP Reviewed [] [facility] Reviewed Encouraged by Shoshana Gallegos [facility] to: [x] consider utilizing therapist/counselor/s ocial worker/psychologist [] continue with therapist/counselor/s ocial worker/psychologist Psychoeducation: -Treatment options discussed in detail with patient/guardian verbalizing understanding of treatment rationales. -Side effects and benefits of all medications prescribed discussed at length between psychiatric prescribing provider and patient/guardian along with the risks associated of xcdx-qa-clvl interactions, including but not limited to prescription medications, OTC medications, vitamins, minerals and herbal supplements. -Patient/Guardian and provider dialogue showcased verbalized understanding from patient on rationales of medication risk vs benefits. 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 -Reduction of stress and anxiety to aid in focus and concentration discussed, again, with patient/guardian physically nodding, voicing understanding, and engaged in treatment plan with Shoshana Gallegos [facility]. -Perceiving complete understanding of rationale by patient/guardian and willingness to adhere to formulated plan of care by prescriber with patient/guardian buy-in, willingness to participate actively in plan of care and willing to take charge of own care. -Although geared for female patients, all patients/guardians are informed by prescribing provider of risks of medications that could potentially be taken by female/women within their [place] of influence and that women who use medicine during have a higher chance of having a baby with defects. -Patient/Guardian denies being and/or knowing of women who are at present and denies wanting to become in the foreseeable future, 0-6 months from now. -Patient/Guardian again informed of the risk of pharmaceutical medications consumed during and how there are potential negative effects on the developing fetus. -Patient/Guardian verbalizes understanding of rationale and physically nods head in agreement that if a should occur, to consult with provider, SLIMER and/or Nurse Environmental Assistant to determine if prescribed medications should or should not be continued. -Instructions regarding both the medical/pharmacologic al and non-pharmacologic aspects of the treatments employed were given, and the patient/guardian seemed to understand this. Risks and benefits of treatment, and of non-treatment, were also discussed. The patient/guardian understands the more frequent side effects associated with the medications. -The use of psychotherapy was addressed today and will continue on an as needed basis for the foreseeable future. The choice is, of course, ultimately left to the patient/guardian. -Patient/Guardian was encouraged to make a follow-up appointment for the next visit. -Additional treatment was discussed and has been addressed on an ongoing basis within the context of this patient's illness, resources, progress, and other appropriate factors. Being compliant with a regular exercise routine, consistent medication use, ongoing psychotherapy, eating and sleeping well, as well as the importance of handling stress, was discussed. 06/13/2024 Other Discussed medication side effects, adverse effects, risks, benefits, as well as interactions. Encouraged non-use of opioids. Has naloxone. Recommended participation in recovery groups/counseling services. Agrees to contact office with questions or concerns. 06/16/2024 Other May self-administer medications or be administered own oral medications per [place] protocols. Provided informed consent with understanding of side effects, adverse effects, risks and benefits as well as alternative treatments as previously discussed and with the above recommended medications & other aspects of the treatment program. Agrees to return sooner if symptoms worsen or suicidal or homicidal ideations occur. Unable to complete full AIMS due to nature of appt; no irregular movements observed during Zoom appt. Plan: -Increase Venlafaxine to 75 mg once daily -Stop Propranolol 10 mg BID -Stop Vyvanse 50 mg once daily -Start Adderall ER 5 mg once daily -Stop Benztropine (patient wants to decrease amount of medications she takes, will re-evaluate TD symptoms at next visit-no tics/movements noted during zoom appointment) -Increase Trazodone 50 mg to 1-2 tabs QHS PRN -Continue Lurasidone 20 mg in AM, 40 mg in PM -Follow up: 2 weeks [] Hard Rx handed to patient [] Rx phoned into pharmacy [x] Rx faxed/e-prescribed into pharmacy [x] PDMP Reviewed [] [facility] Reviewed Encouraged by Shoshana Gallegos [facility]NP-BC to: [] consider utilizing therapist/counselor/s ocial worker/psychologist, referral given [x] continue with therapist/counselor/s ocial worker/psychologist Psychoeducation: -Treatment options discussed in detail with patient/guardian verbalizing understanding of treatment rationales. -Side effects and benefits of all medications prescribed discussed at length between psychiatric prescribing provider and patient/guardian along with the risks associated of jzwe-vb-zkcq interactions, including but not limited to prescription medications, OTC medications, vitamins, minerals and herbal supplements. -Patient/Guardian and provider dialogue showcased verbalized understanding from patient on rationales of medication risk vs benefits. 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 -Reduction of stress and anxiety to aid in focus and concentration discussed, again, with patient/guardian physically nodding, voicing understanding, and engaged in treatment plan with Shoshana Gallegos [facility]. -Perceiving complete understanding of rationale by patient/guardian and willingness to adhere to formulated plan of care by prescriber with patient/guardian buy-in, willingness to participate actively in plan of care and willing to take charge of own care. -Although geared for female patients, all patients/guardians are informed by prescribing provider of risks of medications that could potentially be taken by female/women within their [place] of influence and that women who use medicine during have a higher chance of having a baby with defects. -Patient/Guardian denies being and/or knowing of women who are at present and denies wanting to become in the foreseeable future, 0-6 months from now. -Patient/Guardian again informed of the risk of pharmaceutical medications consumed during and how there are potential negative effects on the developing fetus. -Patient/Guardian verbalizes understanding of rationale and physically nods head in agreement that if a should occur, to consult with provider, SLIMER and/or Nurse Environmental Assistant to determine if prescribed medications should or should not be continued. -Instructions regarding both the medical/pharmacologic al and non-pharmacologic aspects of the treatments employed were given, and the patient/guardian seemed to understand this. Risks and benefits of treatment, and of non-treatment, were also discussed. The patient/guardian understands the more frequent side effects associated with the medications. -The use of psychotherapy was addressed today and will continue on an as needed basis for the foreseeable future. The choice is, of course, ultimately left to the patient/guardian. -Patient/Guardian was encouraged to make a follow-up appointment for the next visit. -Additional treatment was discussed and has been addressed on an ongoing basis within the context of this patient's illness, resources, progress, and other appropriate factors. Being compliant with a regular exercise routine, consistent medication use, ongoing psychotherapy, eating and sleeping well, as well as the importance of handling stress, was discussed. 06/23/2024 Other May self-administer medications or be administered own oral medications per [place] protocols. Provided informed consent with understanding of side effects, adverse effects, risks and benefits as well as alternative treatments as previously discussed and with the above recommended medications & other aspects of the treatment program. Agrees to return sooner if symptoms worsen or suicidal or homicidal ideations occur. Unable to complete full AIMS due to nature of appt; no irregular movements observed during Zoom appt. Plan: -Stop Adderall ER 5 mg once daily (patient had side effects) -Start Vyvanse 50 mg once daily -Continue Venlafaxine 75 mg once daily *no refill needed -Continue Trazodone 50 mg 1-2 tabs QHS PRN *no refill needed -Continue Lurasidone 20 mg in AM, 40 mg in PM *no refill needed -Follow up: 2 weeks [] Hard Rx handed to patient [] Rx phoned into pharmacy [x] Rx faxed/e-prescribed into pharmacy [x] PDMP Reviewed [] [facility] Reviewed Encouraged by Shoshana Gallegos [facility]- to: [] consider utilizing therapist/counselor/s ocial worker/psychologist, referral given [x] continue with therapist/counselor/s ocial worker/psychologist Psychoeducation: -Treatment options discussed in detail with patient/guardian verbalizing understanding of treatment rationales. -Side effects and benefits of all medications prescribed discussed at length between psychiatric prescribing provider and patient/guardian along with the risks associated of bmgf-wf-[id number] interactions, including but not limited to prescription medications, OTC medications, vitamins, minerals and herbal supplements. -Patient/Guardian and provider dialogue showcased verbalized understanding from patient on rationales of medication risk vs benefits. 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 -Reduction of stress and anxiety to aid in focus and concentration discussed, again, with patient/guardian physically nodding, voicing understanding, and engaged in treatment plan with Shoshana Gallegos [facility]. -Perceiving complete understanding of rationale by patient/guardian and willingness to adhere to formulated plan of care by prescriber with patient/guardian buy-in, willingness to participate actively in plan of care and willing to take charge of own care. -Although geared for female patients, all patients/guardians are informed by prescribing provider of risks of medications that could potentially be taken by female/women within their [place] of influence and that women who use medicine during have a higher chance of having a baby with defects. -Patient/Guardian denies being and/or knowing of women who are at present and denies wanting to become in the foreseeable future, 0-6 months from now. -Patient/Guardian again informed of the risk of pharmaceutical medications consumed during and how there are potential negative effects on the developing fetus. -Patient/Guardian verbalizes understanding of rationale and physically nods head in agreement that if a should occur, to consult with provider, SLIMER and/or Nurse Environmental Assistant to determine if prescribed medications should or should not be continued. -Instructions regarding both the medical/pharmacologic al and non-pharmacologic aspects of the treatments employed were given, and the patient/guardian seemed to understand this. Risks and benefits of treatment, and of non-treatment, were also discussed. The patient/guardian understands the more frequent side effects associated with the medications. -The use of psychotherapy was addressed today and will continue on an as needed basis for the foreseeable future. The choice is, of course, ultimately left to the patient/guardian. -Patient/Guardian was encouraged to make a follow-up appointment for the next visit. -Additional treatment was discussed and has been addressed on an ongoing basis within the context of this patient's illness, resources, progress, and other appropriate factors. Being compliant with a regular exercise routine, consistent medication use, ongoing psychotherapy, eating and sleeping well, as well as the importance of handling stress, was discussed. 07/08/2024 Other May self-administer medications or be administered own oral medications per [place] protocols. Provided informed consent with understanding of side effects, adverse effects, risks and benefits as well as alternative treatments as previously discussed and with the above recommended medications & other aspects of the treatment program. Agrees to return sooner if symptoms worsen or suicidal or homicidal ideations occur. Unable to complete full AIMS due to nature of appt; no irregular movements observed during Zoom appt. Plan: -Continue Vyvanse 50 mg once daily -Continue Venlafaxine 75 mg once daily -Continue Trazodone 50 mg 1-2 tabs QHS -Continue Lurasidone 20 mg in AM, 40 mg in PM -Follow up: 4 weeks [] Hard Rx handed to patient [] Rx phoned into pharmacy [x] Rx faxed/e-prescribed into pharmacy [x] PDMP Reviewed [] [facility]ight Reviewed Encouraged by [facility]leg[facility]: [] consider utilizing therapist/counselor/s ocial worker/psychologist, referral given [x] continue with therapist/counselor/s ocial worker/psychologist Psychoeducation: -Treatment options discussed in detail with patient/guardian verbalizing understanding of treatment rationales. -Side effects and benefits of all medications prescribed discussed at length between psychiatric prescribing provider and patient/guardian along with the risks associated of [id number] interactions, including but not limited to prescription medications, OTC medications, vitamins, minerals and herbal supplements. -Patient/Guardian and provider dialogue showcased verbalized understanding from patient on rationales of medication risk vs benefits. 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 -Reduction of stress and anxiety to aid in focus and concentration discussed, again, with patient/guardian physically nodding, voicing understanding, and engaged in treatment plan with Shoshana Galleg[facility]. -Perceiving complete understanding of rationale by patient/guardian and willingness to adhere to formulated plan of care by prescriber with patient/guardian buy-in, willingness to participate actively in plan of care and willing to take charge of own care. -Although geared for female patients, all patients/guardians are informed by prescribing provider of risks of medications that could potentially be taken by female/women within their [place] of influence and that women who use medicine during have a higher chance of having a baby with defects. -Patient/Guardian denies being and/or knowing of women who are at present and denies wanting to become in the foreseeable future, 0-6 months from now. -Patient/Guardian again informed of the risk of pharmaceutical medications consumed during and how there are potential negative effects on the developing fetus. -Patient/Guardian verbalizes understanding of rationale and physically nods head in agreement that if a should occur, to consult with provider, SLIMER and/or Nurse Environmental Assistant to determine if prescribed medications should or should not be continued. -Instructions regarding both the medical/pharmacologic al and non-pharmacologic aspects of the treatments employed were given, and the patient/guardian seemed to understand this. Risks and benefits of treatment, and of non-treatment, were also discussed. The patient/guardian understands the more frequent side effects associated with the medications. -The use of psychotherapy was addressed today and will continue on an as needed basis for the foreseeable future. The choice is, of course, ultimately left to the patient/guardian. -Patient/Guardian was encouraged to make a follow-up appointment for the next visit. -Additional treatment was discussed and has been addressed on an ongoing basis within the context of this patient's illness, resources, progress, and other appropriate factors. Being compliant with a regular exercise routine, consistent medication use, ongoing psychotherapy, eating and sleeping well, as well as the importance of handling stress, was discussed. 07/11/2024 Other Potential side effects of buprenorphine discussed, as well as taking buprenorphine as prescribed. Dangers of using other controlled substances (prescribed or illegal/including benzodiazepines) with buprenorphine discussed. Patient understands taking other narcotics with buprenorphine could lead to respiratory distress and even . Patient understands that ALL treating providers/physicians should be informed of buprenorphine use as part of a Medication Assisted Treatment program Patient may self-administ er their own medications or may self-administ er their own oral medications per [place] Protocol. 07/29/2024 Other May self-administer medications or be administered own oral medications per [place] protocols. Provided informed consent with understanding of side effects, adverse effects, risks and benefits as well as alternative treatments as previously discussed and with the above recommended medications & other aspects of the treatment program. Agrees to return sooner if symptoms worsen or suicidal or homicidal ideations occur. Unable to complete full AIMS due to nature of appt, denies any irregular muscle movements or facial tics; no irregular movements observed during Zoom appt. Plan: -Continue Vyvanse 50 mg once daily *30 day filled 07/16 -Increase Venlafaxine to 150 mg once daily -Continue Trazodone 50 mg 1-2 tabs QHS -Continue Lurasidone 20 mg in AM, 40 mg in PM *30 day rx's sent 07/08 -Follow up: 2 weeks [] Hard Rx handed to patient [] Rx phoned into pharmacy [x] Rx faxed/e-prescribed into pharmacy [x] PDMP Reviewed [] GeneSight Reviewed Encouraged by [facility] Galleg[facility] to: [] consider utilizing therapist/counselor/s ocial worker/psychologist, referral given [x] continue with therapist/counselor/s ocial worker/psychologist Psychoeducation: -Treatment options discussed in detail with patient/guardian verbalizing understanding of treatment rationales. -Side effects and benefits of all medications prescribed discussed at length between psychiatric prescribing provider and patient/guardian along with the risks associated of nhnk-[id number] interactions, including but not limited to prescription medications, OTC medications, vitamins, minerals and herbal supplements. -Patient/Guardian and provider dialogue showcased verbalized understanding from patient on rationales of medication risk vs benefits. 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 -Reduction of stress and anxiety to aid in focus and concentration discussed, again, with patient/guardian physically nodding, voicing understanding, and engaged in treatment plan with Shoshana Gallegos [facility]. -Perceiving complete understanding of rationale by patient/guardian and willingness to adhere to formulated plan of care by prescriber with patient/guardian buy-in, willingness to participate actively in plan of care and willing to take charge of own care. -Although geared for female patients, all patients/guardians are informed by prescribing provider of risks of medications that could potentially be taken by female/women within their [place] of influence and that women who use medicine during have a higher chance of having a baby with defects. -Patient/Guardian denies being and/or knowing of women who are at present and denies wanting to become in the foreseeable future, 0-6 months from now. -Patient/Guardian again informed of the risk of pharmaceutical medications consumed during and how there are potential negative effects on the developing fetus. -Patient/Guardian verbalizes understanding of rationale and physically nods head in agreement that if a should occur, to consult with provider, SLIMER and/or Nurse Environmental Assistant to determine if prescribed medications should or should not be continued. -Instructions regarding both the medical/pharmacologic al and non-pharmacologic aspects of the treatments employed were given, and the patient/guardian seemed to understand this. Risks and benefits of treatment, and of non-treatment, were also discussed. The patient/guardian understands the more frequent side effects associated with the medications. -The use of psychotherapy was addressed today and will continue on an as needed basis for the foreseeable future. The choice is, of course, ultimately left to the patient/guardian. -Patient/Guardian was encouraged to make a follow-up appointment for the next visit. -Additional treatment was discussed and has been addressed on an ongoing basis within the context of this patient's illness, resources, progress, and other appropriate factors. Being compliant with a regular exercise routine, consistent medication use, ongoing psychotherapy, eating and sleeping well, as well as the importance of handling stress, was discussed. 08/12/2024 Other May self-administer medications or be administered own oral medications per [place] protocols. Provided informed consent with understanding of side effects, adverse effects, risks and benefits as well as alternative treatments as previously discussed and with the above recommended medications & other aspects of the treatment program. Agrees to return sooner if symptoms worsen or suicidal or homicidal ideations occur. Plan: -Increase Vyvanse to 60 mg once daily -Increase Venlafaxine to 225 mg once daily -Continue Trazodone 50 mg 1-2 tabs QHS -Continue Lurasidone 20 mg in AM, 40 mg in PM -Follow up: 2 weeks [] Hard Rx handed to patient [] Rx phoned into pharmacy [x] Rx faxed/e-prescribed into pharmacy [x] PDMP Reviewed [] GeneSight Reviewed Encouraged by Shoshana Gallegos [facility] to: [] consider utilizing therapist/counselor/s ocial worker/psychologist, referral given [x] continue with therapist/counselor/s ocial worker/psychologist Psychoeducation: -Treatment options discussed in detail with patient/guardian verbalizing understanding of treatment rationales. -Side effects and benefits of all medications prescribed discussed at length between psychiatric prescribing provider and patient/guardian along with the risks associated of rhyy-ac-aifr interactions, including but not limited to prescription medications, OTC medications, vitamins, minerals and herbal supplements. -Patient/Guardian and provider dialogue showcased verbalized understanding from patient on rationales of medication risk vs benefits. 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 -Reduction of stress and anxiety to aid in focus and concentration discussed, again, with patient/guardian physically nodding, voicing understanding, and engaged in treatment plan with Shoshana Gallegos [facility]. -Perceiving complete understanding of rationale by patient/guardian and willingness to adhere to formulated plan of care by prescriber with patient/guardian buy-in, willingness to participate actively in plan of care and willing to take charge of own care. -Although geared for female patients, all patients/guardians are informed by prescribing provider of risks of medications that could potentially be taken by female/women within their [place] of influence and that women who use medicine during have a higher chance of having a baby with defects. -Patient/Guardian denies being and/or knowing of women who are at present and denies wanting to become in the foreseeable future, 0-6 months from now. -Patient/Guardian again informed of the risk of pharmaceutical medications consumed during and how there are potential negative effects on the developing fetus. -Patient/Guardian verbalizes understanding of rationale and physically nods head in agreement that if a should occur, to consult with provider, SLIMER and/or Nurse Environmental Assistant to determine if prescribed medications should or should not be continued. -Instructions regarding both the medical/pharmacologic al and non-pharmacologic aspects of the treatments employed were given, and the patient/guardian seemed to understand this. Risks and benefits of treatment, and of non-treatment, were also discussed. The patient/guardian understands the more frequent side effects associated with the medications. -The use of psychotherapy was addressed today and will continue on an as needed basis for the foreseeable future. The choice is, of course, ultimately left to the patient/guardian. -Patient/Guardian was encouraged to make a follow-up appointment for the next visit. -Additional treatment was discussed and has been addressed on an ongoing basis within the context of this patient's illness, resources, progress, and other appropriate factors. Being compliant with a regular exercise routine, consistent medication use, ongoing psychotherapy, eating and sleeping well, as well as the importance of handling stress, was discussed. 08/14/2024 Other Patient may self-administ er their own medications or may self-administ er their own oral medications per [place] Protocol. 08/25/2024 Other May self-administer medications or be administered own oral medications per [place] protocols. Provided informed consent with understanding of side effects, adverse effects, risks and benefits as well as alternative treatments as previously discussed and with the above recommended medications & other aspects of the treatment program. Agrees to return sooner if symptoms worsen or suicidal or homicidal ideations occur. Plan: -Increase Vyvanse to 70 mg once daily *14 day rx filled 08/12 -Continue Venlafaxine to 225 mg once daily -Continue Trazodone 50 mg 1-2 tabs QHS -Continue Lurasidone 20 mg in AM, 40 mg in PM -Follow up: 2 weeks [] Hard Rx handed to patient [] Rx phoned into pharmacy [x] Rx faxed/e-prescribed into pharmacy [x] PDMP Reviewed [] GeneSight Reviewed Encouraged by Shoshana Gallegos [facility] to: [] consider utilizing therapist/counselor/s ocial worker/psychologist, referral given [x] continue with therapist/counselor/s ocial worker/psychologist Psychoeducation: -Treatment options discussed in detail with patient/guardian verbalizing understanding of treatment rationales. -Side effects and benefits of all medications prescribed discussed at length between psychiatric prescribing provider and patient/guardian along with the risks associated of acqi-xv-plmf interactions, including but not limited to prescription medications, OTC medications, vitamins, minerals and herbal supplements. -Patient/Guardian and provider dialogue showcased verbalized understanding from patient on rationales of medication risk vs benefits. 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 -Reduction of stress and anxiety to aid in focus and concentration discussed, again, with patient/guardian physically nodding, voicing understanding, and engaged in treatment plan with Shoshana Gallegos [facility]. -Perceiving complete understanding of rationale by patient/guardian and willingness to adhere to formulated plan of care by prescriber with patient/guardian buy-in, willingness to participate actively in plan of care and willing to take charge of own care. -Although geared for female patients, all patients/guardians are informed by prescribing provider of risks of medications that could potentially be taken by female/women within their [place] of influence and that women who use medicine during have a higher chance of having a baby with defects. -Patient/Guardian denies being and/or knowing of women who are at present and denies wanting to become in the foreseeable future, 0-6 months from now. -Patient/Guardian again informed of the risk of pharmaceutical medications consumed during and how there are potential negative effects on the developing fetus. -Patient/Guardian verbalizes understanding of rationale and physically nods head in agreement that if a should occur, to consult with provider, SLIMER and/or Nurse Environmental Assistant to determine if prescribed medications should or should not be continued. -Instructions regarding both the medical/pharmacologic al and non-pharmacologic aspects of the treatments employed were given, and the patient/guardian seemed to understand this. Risks and benefits of treatment, and of non-treatment, were also discussed. The patient/guardian understands the more frequent side effects associated with the medications. -The use of psychotherapy was addressed today and will continue on an as needed basis for the foreseeable future. The choice is, of course, ultimately left to the patient/guardian. -Patient/Guardian was encouraged to make a follow-up appointment for the next visit. -Additional treatment was discussed and has been addressed on an ongoing basis within the context of this patient's illness, resources, progress, and other appropriate factors. Being compliant with a regular exercise routine, consistent medication use, ongoing psychotherapy, eating and sleeping well, as well as the importance of handling stress, was discussed. 09/08/2024 Other May self-administer medications or be administered own oral medications per [place] protocols. Provided informed consent with understanding of side effects, adverse effects, risks and benefits as well as alternative treatments as previously discussed and with the above recommended medications & other aspects of the treatment program. Agrees to return sooner if symptoms worsen or suicidal or homicidal ideations occur. Plan: -Continue Vyvanse 70 mg once daily *14 days filled 08/25 -Decrease Venlafaxine to 150 mg once daily -Continue Trazodone 50 mg 1-2 tabs QHS *no refill needed -Increase Lurasidone to 40 mg BID -Follow up: 2 weeks [] Hard Rx handed to patient [] Rx phoned into pharmacy [x] Rx faxed/e-prescribed into pharmacy [x] PDMP Reviewed [] GeneSight Reviewed Encouraged by Shoshana [facility]VAL[facility]NP[facility] to: [] consider utilizing therapist/counselor/s ocial worker/psychologist, referral given [x] continue with therapist/counselor/s ocial worker/psychologist Psychoeducation: -Treatment options discussed in detail with patient/guardian verbalizing understanding of treatment rationales. -Side effects and benefits of all medications prescribed discussed at length between psychiatric prescribing provider and patient/guardian along with the risks associated of jgxx-yq-[id number] interactions, including but not limited to prescription medications, OTC medications, vitamins, minerals and herbal supplements. -Patient/Guardian and provider dialogue showcased verbalized understanding from patient on rationales of medication risk vs benefits. 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 -Reduction of stress and anxiety to aid in focus and concentration discussed, again, with patient/guardian physically nodding, voicing understanding, and engaged in treatment plan with Shoshana [facility]. -Perceiving complete understanding of rationale by patient/guardian and willingness to adhere to formulated plan of care by prescriber with patient/guardian buy-in, willingness to participate actively in plan of care and willing to take charge of own care. -Although geared for female patients, all patients/guardians are informed by prescribing provider of risks of medications that could potentially be taken by female/women within their [place] of influence and that women who use medicine during have a higher chance of having a baby with defects. -Patient/Guardian denies being and/or knowing of women who are at present and denies wanting to become in the foreseeable future, 0-6 months from now. -Patient/Guardian again informed of the risk of pharmaceutical medications consumed during and how there are potential negative effects on the developing fetus. -Patient/Guardian verbalizes understanding of rationale and physically nods head in agreement that if a should occur, to consult with provider, SLIMER and/or Nurse Environmental Assistant to determine if prescribed medications should or should not be continued. -Instructions regarding both the medical/pharmacologic al and non-pharmacologic aspects of the treatments employed were given, and the patient/guardian seemed to understand this. Risks and benefits of treatment, and of non-treatment, were also discussed. The patient/guardian understands the more frequent side effects associated with the medications. -The use of psychotherapy was addressed today and will continue on an as needed basis for the foreseeable future. The choice is, of course, ultimately left to the patient/guardian. -Patient/Guardian was encouraged to make a follow-up appointment for the next visit. -Additional treatment was discussed and has been addressed on an ongoing basis within the context of this patient's illness, resources, progress, and other appropriate factors. Being compliant with a regular exercise routine, consistent medication use, ongoing psychotherapy, eating and sleeping well, as well as the importance of handling stress, was discussed. 09/22/2024 Other May self-administer medications or be administered own oral medications per [place] protocols. Provided informed consent with understanding of side effects, adverse effects, risks and benefits as well as alternative treatments as previously discussed and with the above recommended medications & other aspects of the treatment program. Agrees to return sooner if symptoms worsen or suicidal or homicidal ideations occur. Plan: -Continue Vyvanse 70 mg once daily -Switch to Venlafaxine ER and increase to 225 mg once daily -Continue Trazodone 50 mg 1 tabs QHS -Switch Lurasidone to 20 in AM, 60 mg QHS -Follow up: 2 weeks [] Hard Rx handed to patient [] Rx phoned into pharmacy [x] Rx faxed/e-prescribed into pharmacy [x] PDMP Reviewed [] GeneSight Reviewed Encouraged by Shoshana Gallegos [facility] to: [] consider utilizing therapist/counselor/s ocial worker/psychologist, referral given [x] continue with therapist/counselor/s ocial worker/psychologist Psychoeducation: -Treatment options discussed in detail with patient/guardian verbalizing understanding of treatment rationales. -Side effects and benefits of all medications prescribed discussed at length between psychiatric prescribing provider and patient/guardian along with the risks associated of [id number] interactions, including but not limited to prescription medications, OTC medications, vitamins, minerals and herbal supplements. -Patient/Guardian and provider dialogue showcased verbalized understanding from patient on rationales of medication risk vs benefits. 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 -Reduction of stress and anxiety to aid in focus and concentration discussed, again, with patient/guardian physically nodding, voicing understanding, and engaged in treatment plan with Shoshana Gallegos [facility]. -Perceiving complete understanding of rationale by patient/guardian and willingness to adhere to formulated plan of care by prescriber with patient/guardian buy-in, willingness to participate actively in plan of care and willing to take charge of own care. -Although geared for female patients, all patients/guardians are informed by prescribing provider of risks of medications that could potentially be taken by female/women within their modoc of influence and that women who use medicine during have a higher chance of having a baby with defects. -Patient/Guardian denies being and/or knowing of women who are at present and denies wanting to become in the foreseeable future, 0-6 months from now. -Patient/Guardian again informed of the risk of pharmaceutical medications consumed during and how there are potential negative effects on the developing fetus. -Patient/Guardian verbalizes understanding of rationale and physically nods head in agreement that if a should occur, to consult with provider, SLIMER and/or Nurse Environmental Assistant to determine if prescribed medications should or should not be continued. -Instructions regarding both the medical/pharmacologic al and non-pharmacologic aspects of the treatments employed were given, and the patient/guardian seemed to understand this. Risks and benefits of treatment, and of non-treatment, were also discussed. The patient/guardian understands the more frequent side effects associated with the medications. -The use of psychotherapy was addressed today and will continue on an as needed basis for the foreseeable future. The choice is, of course, ultimately left to the patient/guardian. -Patient/Guardian was encouraged to make a follow-up appointment for the next visit. -Additional treatment was discussed and has been addressed on an ongoing basis within the context of this patient's illness, resources, progress, and other appropriate factors. Being compliant with a regular exercise routine, consistent medication use, ongoing psychotherapy, eating and sleeping well, as well as the importance of handling stress, was discussed. 10/15/2024 Other May self-administer medications or be administered own oral medications per [place] protocols. Provided informed consent with understanding of side effects, adverse effects, risks and benefits as well as alternative treatments as previously discussed and with the above recommended medications & other aspects of the treatment program. Agrees to return sooner if symptoms worsen or suicidal or homicidal ideations occur. Medication Hx: -Gabapentin (ineffective) -Lamictal -Solis -Depakote -Paxil -Valium -Zoloft -Cymbalta -Abilify -Seroquel -Risperidone -Clonazepam (effective) -Xanax (too sedating) -Hydroxyzine (hallucinations) -Lyrica -Adderall XR (caused racing heart) -Adderall IR (worked well) -Wellbutrin (ineffective) -Benztropine (ineffective) -Prazosin -Strattera (ineffective) -Propranolol (dizziness) -Hydroxyzine (hallucinations) -Prazosin (intolerable side effects) -Seroquel (worsened TD) Plan: -Hold Vyvanse 70 mg once daily *pt reports recent cocaine use & lucien -Continue Venlafaxine ER 225 mg once daily -Continue Trazodone 50 mg 1 tab QHS -Increase Lurasidone to 40 mg in AM w/ food -Continue Lurasidone 60 mg in PM w/ food *remind pt to get outstanding UDS *order repeat UDS prior to restarting Vyvanse *pt needs to be seen in person by 04/2025 *labs drawn 05/2024 -Follow up: 2 weeks [] Hard Rx handed to patient [] Rx phoned into pharmacy [x] Rx faxed/e-prescribed into pharmacy [x] PDMP Reviewed [] GeneSight Reviewed Encouraged by Shoshana Gallegos [facility]- to: [] consider utilizing therapist/counselor/s ocial worker/psychologist, referral given [x] continue with therapist/counselor/s ocial worker/psychologist Psychoeducation: -Treatment options discussed in detail with patient/guardian verbalizing understanding of treatment rationales. -Side effects and benefits of all medications prescribed discussed at length between psychiatric prescribing provider and patient/guardian along with the risks associated of xmwv-hj-[id number] interactions, including but not limited to prescription medications, OTC medications, vitamins, minerals and herbal supplements. -Patient/Guardian and provider dialogue showcased verbalized understanding from patient on rationales of medication risk vs benefits. 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 -Reduction of stress and anxiety to aid in focus and concentration discussed, again, with patient/guardian physically nodding, voicing understanding, and engaged in treatment plan with Shoshana Gallegos [facility]-. -Perceiving complete understanding of rationale by patient/guardian and willingness to adhere to formulated plan of care by prescriber with patient/guardian buy-in, willingness to participate actively in plan of care and willing to take charge of own care. -Although geared for female patients, all patients/guardians are informed by prescribing provider of risks of medications that could potentially be taken by female/women within their modoc of influence and that women who use medicine during have a higher chance of having a baby with defects. -Patient/Guardian denies being and/or knowing of women who are at present and denies wanting to become in the foreseeable future, 0-6 months from now. -Patient/Guardian again informed of the risk of pharmaceutical medications consumed during and how there are potential negative effects on the developing fetus. -Patient/Guardian verbalizes understanding of rationale and physically nods head in agreement that if a should occur, to consult with provider, SLIMER and/or Nurse Environmental Assistant to determine if prescribed medications should or should not be continued. -Instructions regarding both the medical/pharmacologic al and non-pharmacologic aspects of the treatments employed were given, and the patient/guardian seemed to understand this. Risks and benefits of treatment, and of non-treatment, were also discussed. The patient/guardian understands the more frequent side effects associated with the medications. -The use of psychotherapy was addressed today and will continue on an as needed basis for the foreseeable future. The choice is, of course, ultimately left to the patient/guardian. -Patient/Guardian was encouraged to make a follow-up appointment for the next visit. -Additional treatment was discussed and has been addressed on an ongoing basis within the context of this patient's illness, resources, progress, and other appropriate factors. Being compliant with a regular exercise routine, consistent medication use, ongoing psychotherapy, eating and sleeping well, as well as the importance of handling stress, was discussed. 10/21/2024 Other Patient agrees to take medication as prescribed. Discussed medication side effects, adverse effects, risks, benefits, as well as interactions. Encouraged non-use of opioids and other illicit substances. Has naloxone. Discontinuing buprenorphine increases the risk of overdose upon return to illicit opioid use. Use of alcohol or benzodiazepines with buprenorphine increases the risk of overdose and . Education provided about safe storage of medications. Encouraged participation in recovery groups/counseling services. Contact office with questions or concerns. Patient may self-administ er their own medications or may self-administ er their own oral medications per [place] Protocol. May not self-administ er Sublocade. 11/03/2024 Other May self-administer medications or be administered own oral medications per [place] protocols. Provided informed consent with understanding of side effects, adverse effects, risks and benefits as well as alternative treatments as previously discussed and with the above recommended medications & other aspects of the treatment program. Agrees to return sooner if symptoms worsen or suicidal or homicidal ideations occur. Medication Hx: -Gabapentin (ineffective) -Lamictal -Solis -Depakote -Paxil -Valium -Zoloft -Cymbalta -Abilify -Seroquel -Risperidone -Clonazepam (effective) -Xanax (too sedating) -Hydroxyzine (hallucinations) -Lyrica -Adderall XR (caused racing heart) -Adderall IR (worked well) -Wellbutrin (ineffective) -Benztropine (ineffective) -Prazosin -Strattera (ineffective) -Propranolol (dizziness) -Hydroxyzine (hallucinations) -Prazosin (intolerable side effects) -Seroquel (worsened TD) Plan: -Continue to Hold Vyvanse (pt using meth/cocaine) -Continue Venlafaxine ER 225 mg once daily -Continue Trazodone 50 mg QHS PRN -Continue Lurasidone 40 mg in AM w/ food -Continue Lurasidone 60 mg in PM w/ food *labs/UDS drawn 10/2024 *pt needs to be seen in person by 04/2025 -Follow up: 4 weeks [] Hard Rx handed to patient [] Rx phoned into pharmacy [x] Rx faxed/e-prescribed into pharmacy [x] PDMP Reviewed [] GeneSight Reviewed Encouraged by Shoshana Gallegos HNP-BC to: [] consider utilizing therapist/counselor/s ocial worker/psychologist, referral given [x] continue with therapist/counselor/s ocial worker/psychologist Psychoeducation: -Treatment options discussed in detail with patient/guardian verbalizing understanding of treatment rationales. -Side effects and benefits of all medications prescribed discussed at length between psychiatric prescribing provider and patient/guardian along with the risks associated of [id number]-ejpr interactions, including but not limited to prescription medications, OTC medications, vitamins, minerals and herbal supplements. -Patient/Guardian and provider dialogue showcased verbalized understanding from patient on rationales of medication risk vs benefits. 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 -Reduction of stress and anxiety to aid in focus and concentration discussed, again, with patient/guardian physically nodding, voicing understanding, and engaged in treatment plan with Shoshana AVALOSHNP-BC. -Perceiving complete understanding of rationale by patient/guardian and willingness to adhere to formulated plan of care by prescriber with patient/guardian buy-in, willingness to participate actively in plan of care and willing to take charge of own care. -Although geared for female patients, all patients/guardians are informed by prescribing provider of risks of medications that could potentially be taken by female/women within their modoc of influence and that women who use medicine during have a higher chance of having a baby with defects. -Patient/Guardian denies being and/or knowing of women who are at present and denies wanting to become in the foreseeable future, 0-6 months from now. -Patient/Guardian again informed of the risk of pharmaceutical medications consumed during and how there are potential negative effects on the developing fetus. -Patient/Guardian verbalizes understanding of rationale and physically nods head in agreement that if a should occur, to consult with provider, SLIMER and/or Nurse Environmental Assistant to determine if prescribed medications should or should not be continued. -Instructions regarding both the medical/pharmacologic al and non-pharmacologic aspects of the treatments employed were given, and the patient/guardian seemed to understand this. Risks and benefits of treatment, and of non-treatment, were also discussed. The patient/guardian understands the more frequent side effects associated with the medications. -The use of psychotherapy was addressed today and will continue on an as needed basis for the foreseeable future. The choice is, of course, ultimately left to the patient/guardian. -Patient/Guardian was encouraged to make a follow-up appointment for the next visit. -Additional treatment was discussed and has been addressed on an ongoing basis within the context of this patient's illness, resources, progress, and other appropriate factors. Being compliant with a regular exercise routine, consistent medication use, ongoing psychotherapy, eating and sleeping well, as well as the importance of handling stress, was discussed. 04/24/2024 Other Learning About the Safe Use of Antibiotics material was discussed. Pt was educated on use of antibiotic medication including dosing, side effects, adverse effects and anticipated response. Pt was also educated on importance of completing full course of treatment as ordered. Patient voiced understanding of all. Plan Of Treatment Future Test Test Name Order Date Mammogram, Bilateral Screening with ABUS as needed 04/22/2024 Xray : Knee, left 2 views 08/06/2024 Insurance Providers Payer Name Payer Address Payer Phone Subscriber Number Group Number Insured Name Patient Relationship to Insured Coverage Start Date Coverage End Date [facility] [address] [place] [address] [id number] Adwoa Zarate Self - patient is the insured Medications Administered Medication Instructions Date of Administration Dosage Notes Sublocade 05/15/2024 300 mg Carlota Ramires 05/15/2024 04:07 PM LICENSED MENTAL HEALTH COUNSELOR >Given Subq LLQ, tolerated well. Sublocade 06/13/2024 300 mg Sublocade 07/11/2024 300 mg Sublocade 08/06/2024 300 mg Sublocade 09/15/2024 300 mg Sublocade 10/21/2024 300 mg Medical (General) History Medical History History ICD Code Anxiety F41.9 Hepatitis C Asthma SONIYA sciatica Rotator cuff tear 3 bulging discs Spinal neural and canal stenosis Degenerative Disc Disease Osteoarthritis Fibromyalgia Thyroid nodule Surgical History Surgery Date(Month/Year) 03/2010 09/2015 Cholecystectomy 2015 Arthroscopy to Right Knee 2010 Arthroscopy to Right Knee 2020 08/2018 Incision and Debridement of Right Breast abscess 2021 Hospitalization History Reason Date(Month/Year) [facility] - Pt did not stay for t x 06/2024 [facility] 03/2024 [facility] 03/2024 [facility] 10/2023 [facility] 09/2023 for Detox Hospitalized 9 times for . First time was when she was 15 years old after grandfather . First Counseling was at age 12. Detox 09/2023 Inpatient at [facility] in [place], [place] 06/2022-07/17/22
--- OUTSIDE RECORDS SUMMARY | 2024-11-24 05:31 | XMS_ITS | Continuity of Care Document ---
Author Organization [facility] Address [address] [place] [address] Phone Care Team Providers Care Conservation Specialist Name Role Phone Kleber Toro MD Unavailable Unavailable Allergies, Adverse Reactions, Alerts Substance Reaction Status Criticality HYDROXYZINE PAMOATE Hallucinations Active No Inf ormation Medications Medication Instructions Dosage Effective Dates (start - stop) Status Comments Latuda 40 mg tablet take 1 tablet by oral route at bedtime - Active meloxicam 15 mg tablet take 1 tablet by oral route every day 15 MG - Active Suboxone 8 mg-[address] 1 film by sublingual route every day allow to dissolve slowly in mouth without chewing or swallowing 1.00 film - Active trazodone 50 mg tablet take 1 tablet by oral route every bedtime after meals 50 MG - Active Zanaflex 2 mg capsule take 1 capsule by oral route every 6 hours as needed 2 MG - Active avoid driving or operate machines Latuda 20 mg tablet take 1 tablet by oral route every day with food (at least 350 calories) in the morning - Active Neurontin 600 mg tablet take 1 tablet by oral route 1 times at night - Active Neurontin 400 mg capsule take 1 capsule by oral route 2 times every day 400 MG - Active Procedures Procedure Date PREV VISIT, NEW, AGE 18-39 Advance Directives Directive Yes / No Effective Date File Name No Information Encounters Encounter Description Practice Location Reason(s) For Visit Diagnoses Date Provider Providers Copied on Encounter [facility], [address] [place], [place], [id number], [place] tel:[phone] [facility] Medicine No Information Cortez Shahid. [address], [place], [place], [address], [place]. tel:[phone] PREV VISIT, NEW, AGE 18-39 [facility], [address], [place], [place], [id number], [place] tel:[phone] [facility] Medicine physical (chief complaint) Encounter for general adult medical examination without abnormal findings Cortez Shahid. [address], [place], [place], [id number], [place]. tel:[phone] Family History Family Member Type Diagnosis Age At Onset Father Problem CAD 60s Father Problem liver cirrhosis Mother Problem Alive and well Father Problem Depression Brother Problem Alive and well Payers Payer name Insurance type Covered constitution party ID Authoriza tion(s) No Information Social History Type Description Quantity Date Captured Comments Alcohol Use Details Unknown Caffeine Use Details Unknown Tobacco Use Status Smoking Status No Information Sex Female Chief Complaint And Reason For Visit No Information Plan Of Treatment Date Type Action Status No Information History Of Present Illness Encounter Date Complaint History Of Prese nt Illness physical Pt needs annual physical pt has multiple medical condition Pt has history of cocaine dependency and she has been clean for 30 days .Pt is on suboxone now. Pt was on methadone but she became addicted to methadone and she used cocaine while on methadone Pt has been on suboxone for 4 weeks now. She is off methadone since one month ago and she has not used any cocaine either Pt has chronic low back pain with muscle spasm .Pt takes zanaflex PRn. Pt denies any sciatica or any loss of bowel or bladder control or saddle area paresthesia. 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 Pt has chronic anxiety and depression with bipolar and borderline personality disorder and insomnia and PTSD Pt takes latuda, neurontin and trazodone Pt doing ok with above meds Pt denies any suicidal or homicidal thought Pt denies any crying spells. PT [facility] just [facility] due to above issue Pt is actually moving to [place] next week. Instructions Date Instruction Additional Infor mation No Information Assessments Type Assessment Date No Information
--- OUTSIDE RECORDS SUMMARY | 2024-11-24 05:31 | XMS_ITS | Continuity of Care Document ---
Author Organization [facility] Address [address] [place] [address] Phone Care Team Providers Care Ladle Filler Name Role Phone Kleber Toro MD Unavailable Unavailable Allergies, Adverse Reactions, Alerts Substance Reaction Status Criticality No Known Allergies Active No Inform ation Medications Medication Instructions Dosage Effective Dates (start - stop) Status Comments [place] 5 mg-325 mg tablet take 1 tablet by oral route 2 times every day as needed for pain 1 tablet - Active PRN for pain, avoid driving or operate machine trazodone 150 mg tablet take 1 tablet (150MG) by oral route every day at bedtime - Active Xanax 1 mg tablet take 1 tablet (1MG) by oral route 2 times every day as needed 1 MG - Active avoid driving or operate machines Tegretol 200 mg tablet take 1 Tablet (200MG) by oral route 3 times every day 200 MG - Active avoid driving or operaet machines Procedures Procedure Date OFFICE/OUTPATIENT VISIT, EST PREV VISIT, NEW, AGE 18-39 Advance Directives Directive Yes / No Effective Date File Name No Information Encounters Encounter Description Practice Location Reason(s) For Visit Diagnoses Date Provider Providers Copied on Encounter [facility], [address], [place], [place], [id number], [place] tel:[phone] [facility] No Information 0-201 5 Cortez Shahid. [address], [place], [place], [address] , [place]. tel:[phone] Referring Provider: Kleber Toro, [address], [place], [place], [id number]. tel:[phone] OFFICE/OUTPA TIENT VISIT, EST [facility], [address] [place], [id number], tel:[phone] [facility] back pain (chief complaint) LFT (chief complaint) HLP (chief complaint) Dietary surveillance and counselingLumbagoUn specified disorder of liverOther and unspecified hyperlipidemiaUnspe cified vitamin deficiency 5 Cortez Shahid. [address] [facility] [address] [place], [place], [address] , [place]. tel:[phone] Referring Provider: Kleber Toro, [address], [place], [place], [id number]. tel:[phone] PREV VISIT, NEW, AGE 18-39 [facility], [address], [place], [place], [id number], [place] tel:[phone] [facility] Physical (chief complaint) Dietary surveillance and counselingRoutine Medical ExamRoutine Medical Exam 4 Cortez Shahid. [address], [place], [place], [address] , [place]. tel:[phone] Family History Family Member Type Diagnosis Age At Onset Brother Problem (finding) RA Mother Problem (finding) fibromyalgia, CML, croh n disea Father Problem (finding) RA Payers Payer name Insurance type Covered alliance party ID Authoriza tion(s) No Information Social History Type Description Quantity Date Captured Comments Sex Female Smoking Status No Information Chief Complaint And Reason For Visit No Information Plan Of Treatment Date Type Action Status Goal Tobacco cessation counseling completed Goal Tobacco cessation counseling completed Referral Ordered: US EXAM, ABDOM, COMPLETE ordered Referral Ordered: SHOULDER XRAY 2+ VIEWS Left ordered History Of Present Illness Encounter Date Complaint History Of Prese nt Illness No Information Instructions Date Instruction Additional Infor mation Physical activity counseling Rel ated to Dietary surveillance counseling Decrease caloric intake Related to Dietary surveillance counseling Physical activity counseling Rel ated to Dietary surveillance counseling Decrease caloric intake Related to Dietary surveillance counseling Assessments Type Assessment Date No Information
--- OUTSIDE RECORDS SUMMARY | 2024-11-24 05:31 | XMS_ITS | Patient Health Record ---
Author Organization [facility] Address [address] [place] [address] Care Team Providers Care Assistant Prosecuting Attorney Name Role Phone WilkinsonJeana Primary Care Provider Allergies Allergen (clinical drug ingredient) Drug/Non Drug Allergy documented on EMR Reaction Allergy Type Onset Date Status Paper Tape (uncoded) Unknown Allergy Active hydroxyzine Vistaril Unknown Drug Allergy Activ e Reason For Referral No Information Medications Medication SIG (Take, Route, Frequency, Duration) Notes Start Date End Date Status Topiramate 100 MG 1/2 tablet Orally Twice a day for 2 weeks then increase to 1 tablet twice daily; Duration: 30 day(s) 09/20/2016 Not-Taking Meclizine HCl 12.5 MG 1 tablet as needed Orally TID Not-Taking Cyclobenzaprine HCl 10 MG 1 tablet as ne eded Orally Not-Taking Ibuprofen Not-Taking Gabapentin Not-Takin g Flexeril Not-Taking traZODone HCl 50 MG 1 tablet at bedtime Orally Once a day Not-Taking Naproxen 500 MG 1 tablet Orally Twic e a day for 10 days Not-Taking Latuda 40 TAKE ONE TABLET WITH FOOD AT BEDTIME Orally Twice a day Active predniSONE 20 MG 1 tablet Orally 3tab s x3 days, then 2tabs x2days, then 1tab x 2days for total 7 days Not-Taking Combivent Respimat 20-100 MCG/ACT 1 puff as needed Inhalation Daily Active Latuda 40 MG 1 tablet with food Orally at bedtime; Duration: 30 days Not-Taking Gabapentin 200 as directed Orally Three times a day; Duration: 30 days 08/24/2016 Not-Taking Flonase 50 MCG/ACT 1 spray in each nostril Nasally Once a day; Duration: 30 day(s) 10/18/2016 Not-Taking Social History Tobacco Use: Social History Observation Description Date Details (start date - stop date) Current Smoker NA - NA Tobacco Use/Smoking Question Answer Notes Are you a current smoker How often do you smoke cigarettes? every day How many cigarettes a day do you smoke? 6-10 How soon after you wake up do you smoke your fir st cigarette? 31-60 minutes Are you interested in quitting? Not ready to sharron t Alcohol Screen (Audit-C) Question Answer Notes Did you have a drink contain ing alcohol in the past year? Yes How often did you have a dri nk containing alcohol in the past year? 2 to 4 times a month (2 points) How many drinks did you have on a typical day when you were drinking in the past year? 1 or 2 drinks (0 point) How often did you have 6 or more drinks on one occasion in the past year? Weekly (3 points) Points 5 Interpretation Positive Sexual History Question Answer Notes Had sex in the past 12 months (vaginal, oral, or anal)? Yes with Men only Use protection? Yes How often? All of the time Prevention strategies discussed: Condoms Have you ever had a Sexually transmitted disease ? No Last menstrual period 03/21/19 Tobacco use other than smoking: Question Answer Notes Are you an other tobacco user? No Problems Problem Type SNOMED Code ICD Code Onset Dates Problem Status W/U Status Risk Notes Problem Borderline personality disorder (39151168) Borderline personality disorder (F60.3) Active confirmed Problem Anxiety (87885769) Anxiety (F41.9) Active confi rmed Problem Depression (110230209) Depression (F32.9) Active confirmed Problem Hepatitis C antibody test positive (112131862) Hepatitis C antibody test positive (R76.8) Active confirmed Problem Posttraumatic stress disorder (14574595) PTSD (post-traumatic stress disorder) (F43.10) Active confirmed Problem Bipolar 1 disorder (690851474) Bipolar 1 disorder (F31.9) Active confirmed Problem Degeneration of lumbosacral intervertebral disc (38747478) Degenerative disc disease at L5-S1 level (M51.36) Active confirmed Problem Depressive disorder (disorder) (28511221) Depression, unspecified depression type (F32.9) Active confirmed Problem Panic disorder (692826500) Panic attacks (F41.0) Active confirmed Problem Drug addiction in remission (F19.21) Active confirmed Problem Problem, abnormal examination (25517164) Encounter for routine adult physical exam with abnormal findings (Z00.01) Active confirmed Plan Of Treatment Pending Test Test Name Order Date HEPATITIS C AB W/REFL TO HCV RNA, BELLA ARCE 09/15/2016 Split Night Sleep Study - PSG Code : 958 11 08/24/2016 Insurance Providers Payer Name Payer Address Payer Phone Subscriber Number Group Number Insured Name Patient Relationship to Insured Coverage Start Date Coverage End Date [place] 1 [facility] [address] [place] [address] [id number] Adwoa Zarate Self - patient is the insured [employer] [address] [address] [place] [address] [id number] Adwoa Zarate Self - patient is the insured MEDICAID BEHAVIORAL HE[employer] [address] [place] [address] [id number] Adwoa Zarate Self - patient is the insured [employer] [address] [id number] Adwoa Zarate Self - patient is the insured Medical (General) History Medical History History ICD Code Bipolar PTSD Anxiety Borderline personality disorder Insomnia 5 bulging discs Spinal neural and canal stenosis Degenerative disc disease Osteoarthritis back Osteoarthritis knees Fibromyalgia Sciatica HPV Oral Herpes Hep C Panic attacks Depression Surgical History Surgery Date(Month/Year) 2009 2016 R Knee surgery 2011 cholecystectomy 2015 08/31/18 Hospitalization History Reason Date(Month/Year) [facility]-numbness in legs and lower back pain L leg numbness, dx with Sciatica 10/31/19 17 Sinus infection 08/2016 9 hospitalizations for depression, 5 mauricio cide attempts Plantar faciitis 09/10/16
--- OUTSIDE RECORDS SUMMARY | 2024-11-24 05:32 | XMS_ITS | Clinical Summary ---
Author Organization [facility] Address [address] [place] [address] Phone Care Team Providers Care Administration Physician Name Role Phone Nilesh Hancock APRN, JESSA Primary Care Provid er Allergies Active Allergy Reactions Criticality Noted Date Comments Hydroxyzine Hallucinations 10/13/2023 Wound Dressing Adhesive Rash 10/13/2023 Medications * This document contains information received from the source organization and may not represent a complete record from that organization. propranolol (INDERAL LA) 60 MG CAPSULE SR 24 HR Take 60 mg by mouth daily as needed for Other (anxiety). 4 Active lurasidone (LATUDA) 40 MG Tablet Take 1 Tablet by mouth in the morning and at bedtime. 3 Active traZODone (DESYREL) 50 MG Tablet Take 50 mg by mouth nightly as needed for Sleep. 9 Active pregabalin (LYRICA) 50 MG Capsule Take 25 mg by mouth 2 times daily. TAKE 1 CAPSULE BY MOUTH DAILY, INCREASE EVERY 3-4 DAYS TO 3 TIMES DAILY TOLERATED. Active buprenorphine-n aloxone (Suboxone) 8-2 MG FILM 1 Film by Sublingual route 3 times daily. 3 Active cyclobenzaprine (FLEXERIL) 10 MG Tablet Take 1 Tablet by mouth 3 times daily as needed for Muscle spasms. Active naloxone HCl (Narcan) 4 MG/0.1ML Liquid 1 [place] by Nasal route as needed for Opioid Reversal. Administer in one nostril for symptoms of overdose (severe sleepiness, breathing problems, not responsive). Call 911. May repeat 1 spray in alternate nostril in 2-3 minutes if needed. 2 Each 4 Active chlordiazePOXID E (LIBRIUM) 10 MG CapsuleIndicati ons:Alcohol withdrawal syndrome, with delirium (HCC) Take 1 Capsule by mouth every 8 hours. 20 Capsule 4 Active folic acid (FOLVITE) 1 MG Tablet Take 1 Tablet by mouth daily. 30 Tablet 4 Active magnesium oxide (MAG-OX) 400 (240 Mg) MG Tablet Take 1 Tablet by mouth daily. 30 Tablet 4 Active ondansetron (ZOFRAN-ODT) 4 MG TABLET DISPERSIBLE Take 1 Tablet by mouth every 6 hours as needed for Nausea - 1st line (for nausea or vomiting). 10 Tablet 4 Active polyethylene glycol (GLYCOLAX, MIRALAX) 17 g Pack Take 1 Packet by mouth 2 times daily. Dissolve in 4-8 oz of liquid. 90 Packet 4 Active senna 8.6 MG Tablet Take 2 Tablets by mouth nightly as needed for Constipation - 1st line. 30 Tablet 4 Active thiamine (VITAMIN B1) 100 MG Tablet Take 1 Tablet by mouth daily. 30 Tablet 4 Active Active Problems Problem Noted Date Diagnosed Date Alcohol withdrawal 10/15/2023 Stimulant withdrawal 10/15/2023 Anxiety 10/15/2023 MRSA infection 10/15/2023 Schizoaffective disorder 10/15/2023 Social History Tobacco Use Types Packs/Day Years Used Date Smoking Tobacco: Every Day Cigarettes Smokeless Tobacco: Never Tobacco Cessation:Ready to Q uit: Not Asked; Counseling Given: Not Answered Alcohol Use Standard Drinks/Week Comments Yes 0 (1 standard drink = 0.6 oz pur e alcohol) Daily [facility] Utilities Answer Date Recorded In the past 12 months has ralali, gas, oil, or water [employer] threatened to shut off services in your home? Patient declined 10/15/2023 Social Connection and Isolation Panel Answer Date Recorded In a typical week, how many times do you talk on the phone with family, friends, or neighbors? Patient declined 10/15/2023 How often do you get togethe r with friends or relatives? Patient declined 10/15/2023 How often do you attend islam or roman catholic serv ices? Patient declined 10/15/2023 Do you belong to any clubs o r organizations such as islam groups, unions, fraternal or athletic groups, or school groups? Patient declined 10/15/2023 How often do you attend meet ings of the clubs or organizations you belong to? Patient declined 10/15/2023 Are you , , di vorced, , never , or living with a partner? Patient declined 10/15/2023 AUDIT-C Answer Date Recorded Q1: How often do you have a drink containing alcohol? 4 or more times a week 10/15/2023 Q2: How many drinks containi ng alcohol do you have on a typical day when you are drinking? 5 or 6 Q3: How often do you have si x or more drinks on one occasion? Daily or almost daily 10/15/2023 Overall Financial Resource Strain (CARDIA) Answe r Date Recorded How hard is it for you to pa y for the very basics like food, housing, medical care, and heating? Patient declined 10/15/2023 [facility] - Occupational Stress Questionnaire Answer Date Recorded Do you feel stress - tense, restless, nervous, or anxious, or unable to sleep at night because your mind is troubled all the time - these days? Patient declined 10/15/2023 Exercise Vital Sign Answer Date Recorde d On average, how many days pe r week do you engage in moderate to strenuous exercise (like a brisk walk)? Patient declined On average, how many minutes do you engage in exercise at this level? Patient declined 10/15/2023 Hunger Vital Sign Answer Date Recorded Within the past 12 months, y ou worried that your food would run out before you got the money to buy more. Patient declined Within the past 12 months, t he food you bought just didn't last and you didn't have money to get more. Patient declined 07/2023 PRAPARE - Transportation Answer Date Re corded In the past 12 months, has l ack of transportation kept you from medical appointments or from getting medications? Patient declined 10/15/2023 In the past 12 months, has l ack of transportation kept you from meetings, work, or from getting things needed for daily living? Patient declined 10/15/2023 Housing Stability Vital Sign Answer Alvaro e Recorded In the last 12 months, was t here a time when you were not able to pay the mortgage or rent on time? Patient declined 10/15/19 24 In the last 12 months, how many places have you lived? 1 10/15/2023 In the last 12 months, was t here a time when you did not have a steady place to sleep or slept in a mcc (including now)? Yes 10/15/2023 Comments Unknown Sex and Gender Information Value Date Recorded Sex Assigned at Not on file Legal Sex Female 10:44 AM CDT Gender Identity Not on file Sexual Orientation Not on file Last Filed Vital Signs Vital Sign Reading Time Taken Comments Blood Pressure 105/54 10/19/2023 7:31 AM CDT Pulse 75 10/19/2023 7:31 AM CDT Temperature 35.9 C (96.6 F) 10/19/2023 7:31 AM CDT Respiratory Rate 16 10/19/2023 7:52 AM CDT Oxygen Saturation 100% 10/19/2023 7:31 AM CDT Inhaled Oxygen Concentration - - Weight 88 kg (194 lb) 10/15/2023 12:40 PM CDT Height 167.6 cm (5' 6) 10/15/2023 12:40 PM CDT Body Mass Index 31.31 10/15/2023 12:40 PM CDT Plan of Treatment Not on file Insurance [place] [id number] Advance Directives * Full Code (Latest Code Status on File) Date Activated Date Inactivated Comments 10/15/2023 3:34 PM 10/19/2023 3:16 PM CPR-Full Treat ment: FULL ARREST: Attempt Resuscitation/CPR wit intubation and mechanical ventilation. PRE-ARREST: Use entire range of life support measures to stabilize the patient. Care Teams Administration Physician Relationship Specialty Start Date End Date Nilesh Hancock, MATHEMATICS ACADEMIC CHAIR, [employer] [address] [place] [address] PCP - General Advanced Practice Nurse 10/13/23
--- OUTSIDE RECORDS SUMMARY | 2024-11-24 05:32 | XMS_ITS | Continuity of Care Document ---
Author Organization [facility] Address [address] [id number] [address] Phone Care Team Providers Care Wet Cotton Feeder Name Role Phone Unavailable Unavailable Unavailable Medications Medication Instructions Dosage Effective Dates (start - stop) Status Comments Sprintec (28) 0.25 mg-35 mcg tablet take 1 tablet by oral route every day 1.00 tablet - Active Xanax 2 mg tablet take 1 tablet by ora l route 3 times every day 2 MG - Active Lunesta 1 mg tablet take 2 tablet by ora l route every day at bedtime 2 MG - Active ibuprofen 800 mg tablet take 1 tablet by ORAL route 3 times every day with food, prn cramping. 800 MG - Active Vicodin ES 7.5 mg-750 mg tablet take 1 tablet by oral route every 4 - 6 hours as needed for pain not to exceed 5 tablets in 24hrs - Active Procedures Procedure Date PAP IG (PP $35) OFFICE/OUTPATIENT VISIT, EST URINE TEST (PP $7) OFFICE/OUTPATIENT VISIT, EST URINE TEST (PP $10.75) 2012 RBC SED RATE, AUTOMATED (PP $4.50) ANTINUCLEAR ANTIBODIES (PP $20.50) COMPREHEN METABOLIC PANEL (PP $18) COMPLETE CBC W/AUTO DIFF WBC (PP $13.25) RHEUMATOID FACTOR, QUANT (PP $9.75) URINE TEST (PP $10.75) 2012 ROUTINE VENIPUNCTURE (PP $3.50) 013 OFFICE/OUTPATIENT VISIT, EST OFFICE/OUTPATIENT VISIT, EST URINE TEST (PP $10.75) 2011 URINE TEST (PP $10.75) 2011 ENDOCERV CURETTAGE W/SCOPE OFFICE/OUTPATIENT VISIT, EST Ceftriaxone sodium injection 250mg THER/PROPH/DIAG INJ, SC/IM URINE TEST (PP $10.75) 2011 TISSUE EXAM BY PATHOLOGIST (PP $54) PAP IG (PP $31.25) CHYLMD TRACH DNA AMP PROBE N.GONORRHOEAE DNA AMP PROB URINALYSIS AUTO W/O SCOPE (PP $5.50) Feb DRUG SCREEN SINGLE (PP $40) ASSAY OF URINE CREATININE (PP $8.75) Feb URINE TEST (PP $10.75) 2011 COMPREHEN METABOLIC PANEL (PP $18) COMPLETE CBC W/AUTO DIFF WBC (PP $13.25) OFFICE/OUTPATIENT VISIT, NEW Advance Directives Directive Yes / No Effective Date File Name No Information Encounters Encounter Description Practice Location Reason(s) For Visit Diagnoses Date Provider Providers Copied on Encounter [facility], [id number]- [place], [place], [id number], [place] tel:[phone] [facility] F1 No Information 3- 6 No Information [facility], [id number]- [place], [place], [address], [place] tel:[phone] [facility] F1 Irregular menstrual cycle 6-201 3 No Information OFFICE/OUTPA TIENT VISIT, EST [facility], [id number]- [facility], [place], [id number], [place] tel:[phone] [place] [address] PAP - repeat (chief complaint) Encounter for Papanicolaou cervical smear to confirm findings of recent normal smear following initial abnormal smear 3 No Information [facility], [id number]- [facility], [place], [place], [address], [place] tel:[phone] [facility] F1 Irregular menstrual cycle 3 No Information OFFICE/OUTPA TIENT VISIT, [facility], [id number], [address], [place] tel:[phone] [place] [address] abnormal bleeding (chief complaint) Irregular menstrual cycle 3 No Information [facility], [id number] [id number] [place], [place], [address], [place] tel:[phone] [place] [address] Irregular menstrual cycle 3 No Information [facility], [id number] [place] [address], [place] tel:[phone] [facility] F1 Unspecified arthropathy, site unspecifiedUn specified symptom associated with female genital organs 3 No Information OFFICE/OUTPA TIENT VISIT, [facility], [id number] [id number], [address], [place] tel:[phone] [facility] F1 fibromyalgias (chief complaint) ArthropathyLu mbago 3 No Information [facility], [id number] [id number], [address], [place] tel:[phone] [place] [address] Dysmenorrhea 2 No Information OFFICE/OUTPA TIENT VISIT, [facility], [id number] [id number]- [place], [address], [place] tel:[phone] [place] [address] follow up from colpo (chief complaint) No Information 2 No Information [facility], [id number] [id number]- [place], [place], [address], [place] tel:[phone] Family Medicine Absence of menstruation 2 Olegario Rosas. [address], [place], [address], [place]. tel:[phone] Referring Provider: Ralph Mendoza, [address] [place], [address] . tel:[phone] [facility], [id number] [id number]- [place], [place], [address], [place] tel:[phone] Family Medicine Absence of menstruation 2 Olegario Rosas. [address], [place], [address], [place]. tel:[phone] Referring Provider: Ralph Mendoza, [address] [place], [address] . tel:[phone] OFFICE/OUTPA TIENT VISIT, [facility], [id number]- [place], [id number], [place] tel:[phone] [facility] F1 abnormal pap smear (chief complaint)IUD removal (chief complaint) Papanicolaou smear of cervix with low grade squamous intraepitheli al lesion (LGSIL)Mechan ical complication due to intrauterine contraceptive deviceEncount er for removal of intrauterine contraceptive deviceUnspeci fied inflammatory disease of female pelvic organs and tissues 2 No Information [facility], [id number]- [place], [place], [address], [place] tel:[phone] [facility] F1 Papanicolaou smear of cervix with low grade squamous intraepitheli al lesion (LGSIL) 2 No Information [facility], [id number]- [facility], [place], [place], [address], [place] tel:[phone] [facility] F1 Papanicolaou smear of cervix with low grade squamous intraepitheli al lesion (LGSIL) 2 No Information [facility], [id number] [id number]- [facility], [place], [place], [address], [place] tel:[phone] [facility] F1 Papanicolaou smear of cervix with low grade squamous intraepitheli al lesion (LGSIL) 2 No Information [facility], [id number] [id number]- [facility], [place], [place], [address], [place] tel:[phone] [facility] F1 Abnormal glandular Papanicolaou smear of cervix 2 No Information [facility], [id number] [id number]- [facility], [place], [place], [address], [place] tel:[phone] Family [facility] F1 Abnormal glandular Papanicolaou smear of cervix 2 No Information [facility], [id number] [id number]- [facility], [place], [place], [address], [place] tel:[phone] Family [facility] F1 Unspecified symptom associated with female genital organs 2 No Information OFFICE/OUTPA TIENT VISIT, [facility], [id number] 453[facility] [place], [place], [address], [place] tel:[phone] Family [facility] F1 abdominal pain (chief complaint) Unspecified symptom associated with female genital organsAbnorma l glandular Papanicolaou smear of cervix 2 No Information Family History Family Member Type Diagnosis Age At Onset No Information Payers Payer name Insurance type Covered democrat ID Kena Mullen (s) [facility] Medicaid [place] 80 89 [id number] Social History Type Description Quantity Date Captured Comments Sex Female Smoking Status No Information Sexual Orientation Heterosexual Chief Complaint And Reason For Visit No Information Reason For Referral Reason For Referral No Information Plan Of Treatment Date Type Action Status Referral Ordered: OBGYN (related to Papanicolaou smear of cervix with low grade squamo) ordered Referral Ordered: Referral: OBGYN. ordered Referral Ordered: Referral: Ultrasound. Appointment date/timeframe: 03/14/2012 ordered History Of Present Illness Encounter Date Complaint History Of Prese nt Illness No Information Functional Status Date Functional Assessmen t No Information Instructions Date Instruction Additional Infor mation No Information Assessments Type Assessment Date No Information Patient Care Teams Name Effective Dates (start - stop) Status Members No Information
[2024-11-24 05:39] LABS: Add Urine Microscopic? YES; Appearance Urine Cloudy (Clear); Glucose Urine UA Negative (Negative); Leukocyte Esterase Ur 3+ LEU/UL (Negative); Need Manual Microscopic Reviewed; Nitrate Urine Positive (Negative); Specific Grav Ur 1.010 (1.001-1.035)
--- NOTE | 2024-11-24 05:39 | ED.ANXIETY ---
HPI - Anxiety General Chief Complaint: Anxiety Stated Complaint: ANXIETY History of Present Illness HPI narrative: Patient is a 39-year-old female who presents emergency department this morning suffering from an anxiety/panic attack. Patient states that she woke up from her sleep and could not breathe. Her AC was off and the room was very hot. Admits to history of cocaine use and previous IV drug use. She does not know the last time she used any drugs states that it has been a while. Patient does present to the ED hyperventilating. Stating that her father here remains extremely anxious. Denies any specific symptoms at this time. Related Data Allergies Allergy/AdvReac Type Severity Reaction Status Date / Time hydroxyzine (From Vistaril) Allergy Hallucinati Verified 11/24/24 05:48 ng TAPE PAPER Allergy Severe RASH Uncoded 11/24/24 05:48 Review of Systems Review of Systems: All systems are reviewed and are negative unless stated otherwise in the HPI. [facility] Past Medical History Medical History Mental health problem Right hand dominant Family History Family History Other Carcinoma of colon Diabetes mellitus Family history of arthritis Family history of lung cancer Family history of malignant neoplasm of esophagus Family history of malignant neoplasm of male breast Family history of mental disorder Social History Social History Smoking status: Current every day smoker Tobacco type: cigarettes Alcohol intake: current Substance use: former Substance use type: crack/cocaine and IV drugs Last use: Last heroin use approx 2013 Living arrangements: with family Exam Narrative: General: Alert, awake, afebrile, extremely anxious, hyperventilating. HEENT: PERRL, no rhinorrhea, no post nasal drip, oropharynx clear. Neck: Trachea midline, no JVD, no lymphadenopathy. Cardiovascular: Tachycardic with regular rhythm, no murmurs, rubs or gallops, no peripheral edema. Respiratory: Clear to auscultation bilaterally, tachypnea, no wheezing, no rhonchi, no rubs, no respiratory distress. Abdomen: Soft, nontender, nondistended, no rebound, no guarding, no peritoneal signs. Musculoskeletal: No joint swelling or deformity, normal muscle tone. Skin: No rashes or petechia, no signs of infection. Psychiatric: Anxious, hyperventilating, refusing to keep monitor leads on. Neurological: Alert and oriented to person, place, and time. Follows all commands. No focal deficits, speech is clear and fluent. Course Vital Signs Vital signs: Vital Signs Temperature 98.2 F 11/24/24 05:11 Pulse Rate 112 H 11/24/24 05:11 Respiratory Rate 26 H 11/24/24 05:11 Blood Pressure 114/85 11/24/24 05:11 Pulse Oximetry 100 11/24/24 05:11 Oxygen Delivery Room Air 11/24/24 05:11 Temperature 98.2 F 11/24/24 05:11 Pulse Rate 112 H 11/24/24 05:11 Respiratory Rate 26 H 11/24/24 05:11 Blood Pressure 114/85 11/24/24 05:11 Pulse Oximetry 100 11/24/24 05:11 Oxygen Delivery Room Air 11/24/24 05:11 MDM - Anxiety MDM Narrative Medical decision making narrative: The patient was evaluated by myself in the emergency department. History is obtained from patient who is an independent historian and physical exam was performed. External medical records were reviewed at this time. IV was established and pertinent tests were ordered. Patient was administered 1 L IV fluid bolus with normal saline and 1 mg of IV Ativan. EKG was obtained which revealed sinus rhythm rate of 61 beats per minute. No ST changes, T wave inversions or evidence of acute ischemia. EKG was independently interpreted by me and is currently pending official cardiology read. Laboratory results obtained revealing no acute process. Urinalysis did reveal urinary tract infection. Patient with pain to her 1st dose of antibiotic 1 g IV Rocephin and states that she will be placed on an oral antibiotic to take at home for the next 7 days and patient is agreeable. UDS was positive for cocaine. Imaging studies obtained included CXR which was independently interpreted by me revealing no acute cardiopulmonary process, which is pending final radiology interpretation. Differential diagnosis considerations include acute stress reaction, anxiety, panic attack, acute viral syndrome, infectious process such as pneumonia. Comorbidities impacting this visit include history of anxiety. I have evaluated and discussed social determinants of health with the patient that could potentially impact subsequent diagnosis and treatment plans. On repeat assessment of the patient, reevaluation revealed that the patient is doing well and is in no acute distress. Patient symptoms have improved since she arrived to our emergency department. Repeat vital signs were all reviewed and noted to be stable. Differential diagnosis and treatment plan were discussed with the patient at bedside. Patient agrees with discussion and after shared medical decision making agrees with discharge. All questions were answered to the patient's satisfaction. Patient will follow up with her PCP in 3-5 days. Script for cephalexin was sent to patient's pharmacy to take as prescribed for her UTI. Patient was provided with strict return precautions and instructed to return to the emergency department if any new or worsening symptoms develop. The patient was discharged in stable condition. Lab Data 11/24/24 05:17 11/24/24 05:17 Labs: Lab Results 11/24/24 11/24/24 11/24/24 Range/Units 05:17 05:17 05:24 WBC 8.6 (4.5-10.0) K/mm3 RBC 5.15 (4.2-5.4) M/mm3 Hgb 14.4 (12.0-15.0) g/dL Hct 44.6 (37.0-47.0) % MCV 86.6 (80-100) fl MCH 28.0 (26-34) pg MCHC 32.3 (32-36) g/dl RDW 12.4 (11.5-14.5) % Plt Count 382 H D (150-375) k/mm3 MPV 10.5 H (7.4-10.4) fl Immature Gran % (Auto) 0.3 (0-0.5) % Neut % (Auto) 73.7 H (45.5-73.1) % Lymph % (Auto) 18.6 (18.3-44.2) % [place] % (Auto) 5.9 (2.6-8.5) % Eos % (Auto) 0.8 (0-4.4) % Baso % (Auto) 0.7 (0.2-1.2) % Lymph # (Auto) 1.60 (0.9-3.2) K/mm3 [place] # (Auto) 0.5 (0.1-0.6) K/mm3 Eos # (Auto) 0.1 (0-0.3) K/mm3 Baso # (Auto) 0.1 (0.0-0.1) K/mm3 Abs Immat Gran (auto) 0.03 (0.00-0.031) K/mm3 Absolute Neuts (auto) 6.3 (1.3-6.7) K/mm3 Absolute Nucleated RBC 0.000 (0.0-0.012) K/mm3 Nucleated RBC % 0.0 (0.0-0.2) % Sodium 138 (137-145) mmol/L Potassium 3.6 (3.4-5.0) mmol/L Chloride 102 (98-107) mmol/L Carbon Dioxide 23 (22-30) mmol/L Anion Gap 13 H (4-12) mmol/L BUN 15 D (7-17) mg/dL Creatinine 1.17 H (0.7-1.0) mg/dL Estim Creat Clear Calc Not Reportable Estimated GFR 51 L (59 - ) Glucose 121 H (65-110) mg/dL Calcium 10.1 (8.4-10.2) mg/dL Magnesium 1.9 (1.6-2.3) mg/dL Total Bilirubin 0.7 (0.2-1.3) mg/dL AST 31 (14-36) U/L ALT 19 (6-35) U/L Alkaline Phosphatase 92 (38-126) U/L Troponin I < 0.012 Cancelled (0.000-0.034) ng/mL Total Protein 9.4 H (6.3-8.2) g/dL Albumin 4.4 (3.5-5.1) g/dL Urine Color Yellow (Yellow) Urine Appearance Cloudy H (Clear) Urine pH 8.5 (5.0-9.0) Ur Specific [place] 1.010 (1.001-1.035) Urine Protein 1+ H (Negative) mg/dL Urine Glucose (UA) Negative (Negative) mg/dL Urine Ketones Negative (Negative) mg/dL Ur Blood (Man) Trace (Negative) Urine Nitrate Positive H (Negative) Urine Bilirubin Negative (Negative) Urine Urobilinogen 1.0 (<2.0) mg/dL Add Ur Microanalysis Reviewed Leukocyte Esterase Rfl 3+ H (Negative) JUSTIN/UL Urine RBC 0-2 (0-2) /hpf Urine WBC >100 H (0-3) /hpf Ur Squamous Epith Cells Moderate (Few) /hpf Urine Bacteria 4+ H /hpf Urine Casts 3-5 POC Urine HCG, Qual Negative (Negative) Salicylates < 1.0 L (2-20) mg/dL Urine Opiates Screen Negative (Negative) Urine Methadone Screen Negative (Negative) Acetaminophen < 10 L (10-30) ug/mL Ur Barbiturates Screen Negative (Negative) Ur Phencyclidine Scrn Negative (Negative) Ur Amphetamine Screen Negative (Negative) U Benzodiazepines Scrn Negative (Negative) Urine Cocaine Screen Positive A (Negative) U Cannabinoids Screen Negative (Negative) Ethyl Alcohol < 10 (<10) mg/dL Discharge Plan Discharge Clinical Impression: Acute anxiety, UTI (urinary tract infection) Patient Disposition: Home Condition: Improved Instructions: Antibiotic Form, Urinary Tract Infection in Women (DC), Panic Disorder (ED), Anxiety (ED) Additional Instructions: Please follow-up with your family doctor within the next 3-5 days. Return to the emergency department if any new or worsening symptoms develop. Please take the prescribed antibiotic as instructed for UTI. Patient Language: Tanzanian Prescriptions: New cephalexin 500 mg capsule 500 mg PO Q12H 7 Days Qty: 14 0RF No Action sulfamethoxazole-trimethoprim [Bactrim DS] 800-160 mg tablet 1 tablet PO Q12H 10 Days Qty: 20 0RF polymyxin B sulf-trimethoprim [Polytrim] 10,000 unit- 1 mg/mL drops 1 drp RIGHT EYE Q3H 7 Days Qty: 10 0RF Rx Instructions: while awake; do not exceed 6 doses in 24 hours cephalexin 500 mg capsule 500 mg PO Q8H 5 Days Qty: 15 0RF cephalexin 500 mg capsule 500 mg PO Q8H 5 Days Qty: 15 0RF sulfamethoxazole-trimethoprim [Bactrim DS] 800-160 mg tablet 1 tablet PO Q12H 5 Days Qty: 10 0RF cyclobenzaprine 5 mg tablet 5 mg PO TID PRN (Reason: muscle spasm) Qty: 7 0RF Follow-up/Referrals: Kleber Toro MD [Physician] - 3 Days PHYSICIAN,EDITOR SOUND [Primary Care Provider] - Time of Disposition: 05:43
[2024-11-24 05:40] LABS: Alanine Aminotransferase 19 U/L (6-35); Albumin Level 4.4 g/dL (3.5-5.1); Alkaline Phosphatase 92 U/L (38-126); Anion Gap 13 mmol/L (4-12); Aspartate Amino Transferase 31 U/L (14-36); Bilirubin,Total 0.7 mg/dL (0.2-1.3); Blood Urea Nitrogen 15 mg/dL (7-17); Calcium 10.1 mg/dL (8.4-10.2); Carbon Dioxide 23 mmol/L (22-30); Chloride 102 mmol/L (98-107); Estimated Glomerular Filt Rate 51; Glucose 121 mg/dL (65-110); Magnesium 1.9 mg/dL (1.6-2.3); Potassium 3.6 mmol/L (3.4-5.0); Sodium 138 mmol/L (137-145); Total Protein 9.4 g/dL (6.3-8.2)
[2024-11-24 05:47] LABS: Cannabinoid Screen Urine Negative (Negative)
[2024-11-24 05:51] LABS: Troponin I < 0.012 ng/mL (0.000-0.034)
[2024-11-24] MEDS: cefTRIAXone 1 GM in SODIUM CHLORIDE 0.9% IV 50 ML 100 ML IVPB (05:51)
[2024-11-24 05:52] LABS: Acetaminophen < 10 ug/mL (10-30); Salicylate < 1.0 mg/dL (2-20)
[2024-11-24 06:48] VITALS: BP 124/88; PULSE 80; RESP 16; O2SAT 100
== END 2024-11-24 06:49 | disposition home or self-care (01) ==
PROVIDERS: Emergency Provider Emergency Medicine
DX: F41.9 Anxiety disorder, unspecified (principal); N39.0 Urinary tract infection, site not specified; F17.210 Nicotine dependence, cigarettes, uncomplicated
CPT/HCPCS: 36415; 71045; 80053; 80143; 80179; 80307; 81001; 81025; 82077; 83735; 84484; 85025; 93005; 96361; 96365; 96375; 99284; J0696; J2060; J7030